=== PATIENT | female | born 1955 | race Caucasian/White ===

== ENCOUNTER 2017-07-30 19:22 | Inpatient (IN) | payer OTHER ==
[~2017-07-30] VITALS: Ht 170.2 cm; Wt 100.2 kg
[2017-07-30 19:26] VITALS: BP 167/86; PULSE 117; RESP 18; TEMP 98.5; O2SAT 95
[2017-07-30] MEDS ORDERED: [UNRECOGNIZED DRUG - CODE] PO (19:38)
[2017-07-30] MEDS ORDERED: ASPI-516 CHEW (19:38)
[2017-07-30] MEDS ORDERED: PANTOPRAZOLE INJ 80 MG in SODIUM CHLORIDE 0.9% INJ 35 ML IV ONE (19:52)
[2017-07-30] MEDS ORDERED: SODIUM CHLOR 0.9% 1000 ML INJ 1,000 ML IV SCH (19:52)
[2017-07-30] MEDS ORDERED: METOCLOPRAMIDE HCL 10 MG/2 ML VIAL IV PUSH ONE (20:00)
[2017-07-30] MEDS ORDERED: SODIUM CHLORIDE 0.9% FLUSH 10 ML FLUSH IVF PRN (20:00)
[2017-07-30] MEDS ORDERED: SODIUM CHLORID 0.9% 500 ML INJ 500 ML IV ONE (20:00)
--- NOTE | 2017-07-30 20:05 | PD ---
HPI Chief Complaint: GI Complaint Time Seen by Provider: 19:55 Travel History International Travel<30 days: No Contact w/Intl Traveler<30days: No Traveled to known affect area: No History of Present Illness HPI 62-year-old female presents to the emergency department by private transportation the care of her spouse for complaint of generalized weakness diaphoresis and black stools 3 today with associated nausea. Patient states that she has had black stools once in the past associated with diverticulitis and lower abdominal pain. Patient denies any lower quadrant or left lower quadrant abdominal pain. Patient does complain of some epigastric pain. Patient had been using nonsteroidal anti-inflammatory medications on an as- needed basis until about 2 weeks ago when she started noticing that when she would urinate she had blood in her urine. Patient has not noticed any blood in her urine recently. Patient's had nausea but no vomiting. Patient denies any known history of esophagitis gastritis or peptic ulcer disease. Patient takes no blood thinning agents. Patient takes no prescription medications. Patient has history of previous upper endoscopy that was reportedly normal 2 years ago when she was living in [place] as well as underwent colonoscopy at the same time and had 3 benign polyps excised. Patient's had no red blood per rectum. Patient has had no hematemesis or coffee-ground emesis. Patient denies any chest pain or shortness of breath. Patient's had no near syncope or syncope. Patient denies any cardiac history. Patient reports symptoms have been present 1 day. Patient has had poor oral intake. Patient is unable to identify exacerbating or alleviating factors. Past medical history is significant for tobaccoism diverticulitis unilateral oophorectomy and cholecystectomy. Patient denies history of alcohol use or pancreatitis. Patient rates overall discomfort 6/10 in intensity. [facility] Past Medical History Narrative Medical Upper endoscopy colonoscopy polypectomy cholecystectomy unilateral oophorectomy diverticulitis; tobaccoism; nursing notes reviewed Diminished Hearing: No Diverticulitis: Yes Tetanus Vaccination: Unknown Influenza Vaccination: No ?: Not Menopausal: Yes Past Surgical History Cholecystectomy: Yes Gynecologic Surgery: Yes (one ovary removed) Social History Alcohol Use: No Tobacco Use: Yes Substance Use: No Allergies-Medications (Allergen,Severity, Reaction): Coded Allergies: Iodinated Contrast- Oral and IV Dye (Verified Allergy, Severe, 07/30/17) cabbage (Verified Allergy, Severe, 07/30/17) latex (Verified Allergy, Severe, 07/30/17) peanut (Verified Allergy, Severe, 07/30/17) Reported Meds & Prescriptions Reported Meds & Active Scripts Active Reported Fish Oil Concentrate ([place]-3 Fatty Acids) 1,000 Mg Capsule 1,000 Mg PO DAILY Aspirin 81 Mg Chew 81 Mg CHEW DAILY Review of Systems Except as stated in HPI: all other systems reviewed are Neg General / Constitutional: No: Fever, Chills HENT: No: Congestion Cardiovascular: Positive: Diaphoresis, No: Chest Pain or Discomfort, Palpitations, Dyspnea on exertion Respiratory: No: Shortness of Breath Gastrointestinal: Positive: Nausea, Abdominal Pain (Epigastric), Loss of Appetite, No: Vomiting, Diarrhea, Hematemesis, Hematochezia (Black tarry stool) Genitourinary: Positive: Hematuria (Intermittent), No: Urgency, Frequency, Dysuria Musculoskeletal: No: Myalgias, Arthralgias Skin: No Rash Neurologic: Positive: Weakness, No: Dizziness, Syncope, Focal Abnormalities, Coordination Problem Psychiatric: No: Anxiety Hematologic/Lymphatic: No: Easy Bruising Physical Exam Narrative GENERAL: Well-developed well-nourished obese female no acute distress no respiratory distress; GCS 15 SKIN: Warm and dry. HEAD: Normocephalic. EYES: No scleral icterus. No injection or drainage. NECK: Supple, trachea midline. No JVD or lymphadenopathy. CARDIOVASCULAR: Regular rate and rhythm without murmurs, gallops, or rubs. RESPIRATORY: Breath sounds equal bilaterally. No accessory muscle use. GASTROINTESTINAL: Abdomen soft, mild epigastric tenderness to direct palpation without guarding or rebound otherwise abdomen is nontender, nondistended. Rectal exam: Normal sphincter tone black stool/melena on exam glove MUSCULOSKELETAL: No cyanosis, or edema. BACK: Nontender without obvious deformity. No CVA tenderness. Data Data Last Documented VS Vital Signs Date Time Temp Pulse Resp B/P (MAP) Pulse Ox O2 Delivery O2 Flow Rate FiO2 07/30/17 20:22 18 97 Room Air 07/30/17 19:26 98.5 117 167/86 (113) Orders Orders Comprehensive Metabolic Panel (07/30/17 19:52) Lipase (07/30/17 19:52) Prothrombin Time / Inr (Pt) (07/30/17 19:52) Act Partial Throm Time (Ptt) (07/30/17:52) Urinalysis - C+S If Indicated (07/30/17:) Type And Screen (07/30/17) Chest, Single Ap (07/30/17) Ecg Monitoring (07/30/17) Iv Access Insert/Monitor (07/30/17) Oximetry (07/30/17) Sodium Chlor 0.9% 1000 Ml Inj (Ns 1000 M (07/30/17:52) Sodium Chloride 0.9% Flush (Ns Flush) (07/30/17 20:00) Sodium Chloride 0.9... W/Pantoprazole In (07/30/17:) Sodium Chloride 0.9... W/Pantoprazole In (07/30/17) Sodium Chlorid 0.9% 500 Ml Inj (Ns 500 M (07/30/17 20:00) Metoclopramide Inj (Reglan Inj) (07/30/17 20:00) Complete Blood Count With Diff (07/30/17:) Labs Laboratory Tests Test 07/30/17 20:00 07/30/17 20:40 White Blood Count 9.9 TH/MM3 Red Blood Count 3.99 MIL/MM3 Hemoglobin 12.6 GM/DL Hematocrit 37.9 % Mean Corpuscular Volume 94.9 FL Mean Corpuscular Hemoglobin 31.5 PG Mean Corpuscular Hemoglobin Concent 33.2 % Red Cell Distribution Width 12.4 % Platelet Count 239 TH/MM3 Mean Platelet Volume 8.2 FL Neutrophils (%) (Auto) 64.0 % Lymphocytes (%) (Auto) 28.4 % Monocytes (%) (Auto) 4.7 % Eosinophils (%) (Auto) 1.1 % Basophils (%) (Auto) 1.8 % Neutrophils # (Auto) 6.3 TH/MM3 Lymphocytes # (Auto) 2.8 TH/MM3 Monocytes # (Auto) 0.5 TH/MM3 Eosinophils # (Auto) 0.1 TH/MM3 Basophils # (Auto) 0.2 TH/MM3 CBC Comment DIFF FINAL Differential Comment Prothrombin Time 10.3 SEC Prothromb Time International Ratio 1.0 RATIO Activated Partial Thromboplast Time 23.7 SEC Blood Urea Nitrogen 42 MG/DL Creatinine 0.93 MG/DL Random Glucose 161 MG/DL Total Protein 7.1 GM/DL Albumin 3.4 GM/DL Calcium Level 9.0 MG/DL Alkaline Phosphatase 80 U/L Aspartate Amino Transf (AST/SGOT) 11 U/L Alanine Aminotransferase (ALT/SGPT) 23 U/L Total Bilirubin 0.5 MG/DL Sodium Level 140 MEQ/L Potassium Level 4.0 MEQ/L Chloride Level 109 MEQ/L Carbon Dioxide Level 23.8 MEQ/L Anion Gap 7 MEQ/L Estimat Glomerular Filtration Rate 61 ML/MIN Lipase 204 U/L MDM Medical Decision Making Medical Screen Exam Complete: Yes Emergency Medical Condition: Yes Medical Record Reviewed: Yes Interpretation(s) Last Impressions Chest X-Ray 07/30/171951 Signed Impressions: CONCLUSION: No active disease. CBC & BMP Diagram 07/30/17 20:00 Total Protein 7.1, Albumin 3.4, Calcium Level 9.0, Alkaline Phosphatase 80, Aspartate Amino Transf (AST/SGOT) 11 L, Alanine Aminotransferase (ALT/SGPT) 23, Total Bilirubin 0.5 Vital Signs Date Time Temp Pulse Resp B/P (MAP) Pulse Ox O2 Delivery O2 Flow Rate FiO2 07/30/17 20:22 18 97 Room Air 07/30/17 19:26 98.5 117 18 167/86 (113) 95 Differential Diagnosis Upper GI bleed lower GI bleed anemia colitis diverticulitis peptic ulcer disease gastritis avm malignancy; also to consider esophageal varices Narrative Course Patient placed on quality assurance monitor with continuous pulse oximetry IV access obtained specimens collected and sent for resulting patient given Reglan for complaint of nausea and Protonix bolus with Protonix infusion for GI bleed patient noted to be mildly tachycardic in triage vital signs given 500 cc bolus of normal saline and maintenance fluid at 125 cc/h CBC is automated differential hemoglobin 12.6 stable; BUN/creatinine ratio greater than 30 (bun 42/cr 0.93); patient's case discussed with on-call [facility] physician Dr. Aguayo works up to his service request with admission orders and GI consult not needed in ED Critical Care Narrative Aggregate critical care time was 30 minutes. Time to perform other separately billable procedures was not included in the critical care time. My time did not include minutes spent treating any other patients simultaneously or on activities that did not directly contribute to the patient's treatment. The services I provided to this patient were to treat and/or prevent clinically significant deterioration that could result in: Hemorrhagic shock, I provided critical care services requiring my management, as noted below: Chart data review, documentation time, medication orders and management, vital sign assessments/reviewing monitor data, ordering and reviewing lab tests, ordering and interpreting/reviewing x-rays and diagnostic studies, care of the patient and discussion of the patient with the admitting physicians. HemaPrompt Point of Care Internal Pos. & Neg. Controls: Passed Fecal Specimen Occult Blood: Positive Physician Communication Physician Communication discussed with and accepted by Dr Aguayo to his service --requests GI consult to admit orders Diagnosis Primary Impression: GI bleed Qualified Codes: K92.1 - Melena Admitting Information Admitting Physician Requests: Doreen Montoya MD Jul 30, 2017 20:05
[2017-07-30 20:10] LABS: AUTOMATED NEUTROPHIL # 6.3 TH/MM3 (1.8-7.7); BASOPHIL # 0.2 TH/MM3 (0-0.2); BASOPHIL % 1.8 % (0.0-2.0); EOSINOPHIL # 0.1 TH/MM3 (0-0.4); EOSINOPHIL % 1.1 % (0.0-4.0); HEMATOCRIT 37.9 % (35.0-46.0); HEMOGLOBIN 12.6 GM/DL (11.6-15.3); LYMPH % 28.4 % (9.0-44.0); LYMPHOCYTE # 2.8 TH/MM3 (1.0-4.8); MEAN CELL VOLUME 94.9 FL (80.0-100.0); MEAN CORPUSCULAR HEMOGLOBIN 31.5 PG (27.0-34.0); MEAN CORPUSCULAR HGB CONC 33.2 % (32.0-36.0); MEAN PLATELET VOLUME 8.2 FL (7.0-11.0); MONO % 4.7 % (0.0-8.0); MONOCYTE # 0.5 TH/MM3 (0-0.9); PLATELET COUNT 239 TH/MM3 (150-450); RED BLOOD COUNT 3.99 MIL/MM3 (4.00-5.30); RED CELL DISTRIBUTION WIDTH 12.4 % (11.6-17.2); WHITE BLOOD COUNT 9.9 TH/MM3 (4.0-11.0)
[2017-07-30 20:22] VITALS: RESP 18; O2SAT 97
[2017-07-30 20:23] LABS: CHLORIDE 109 MEQ/L (98-107); SODIUM (NA) 140 MEQ/L (136-145)
[2017-07-30 20:27] LABS: ALBUMIN 3.4 GM/DL (3.4-5.0); BICARBONATE 23.8 MEQ/L (21.0-32.0); BLOOD UREA NITROGEN 42 MG/DL (7-18); GLUCOSE,RANDOM 161 MG/DL (74-106)
[2017-07-30 20:29] LABS: PROTHROMBIN TIME - PATIENT 10.3 SEC (9.8-11.6)
[2017-07-30 20:30] LABS: ALT (GPT) 23 U/L (10-53); AST (GOT) 11 U/L (15-37); CREATININE 0.93 MG/DL (0.50-1.00); GLOMERULAR FILTRATION RATE 61 ML/MIN (>89)
[2017-07-30 20:32] LABS: TOTAL BILIRUBIN ADULT 0.5 MG/DL (0.2-1.0); TOTAL PROTEIN 7.1 GM/DL (6.4-8.2)
[2017-07-30 20:33] LABS: ALKALINE PHOSPHATASE 80 U/L (45-117)
--- NOTE | 2017-07-30 20:38 | RADRPT ---
EXAM DATE: 07/30/2017 8:22 PM EDT AGE/SEX: 62 years / Female INDICATIONS: Tachycardia. CLINICAL DATA: This is the patient's initial encounter. Patient reports that signs and symptoms have been present for 1 day and indicates a pain score of 0/10. MEDICAL/SURGICAL HISTORY: None. None. COMPARISON: No prior exams available for comparison. FINDINGS: A single AP view of the chest demonstrates the lungs to be symmetrically aerated without evidence of mass, infiltrate or effusion. The cardiomediastinal contours are unremarkable. Osseous structures a re intact. CONCLUSION: No active disease. Electronically signed by: Sánchez Madrid MD 07/30/2017 8:36 PM EDT
[2017-07-30 20:49] LABS: BILIRUBIN, URINE NEG (NEG); BLOOD, URINE LARGE (NEG); GLUCOSE,URINE NEG (NEG); KETONE, URINE NEG (NEG); NITRITE,URINE NEG (NEG); URINE COLOR YELLOW (YELLW/STRAW); URINE LEUKOCYTE ESTERASE SMALL (NEG)
[2017-07-30 21:03] LABS: BACTERIA, URINE RARE /hpf
[2017-07-30] MEDS: PANTOPRAZOLE INJ 80 MG in SODIUM CHLORIDE 0.9% INJ 100 ML IV SCH (21:10)
[2017-07-30 21:15] VITALS: BP 135/64; PULSE 96; RESP 18; O2SAT 98
[2017-07-30 23:10] VITALS: BP 132/66; PULSE 92; RESP 18; O2SAT 98
[2017-07-30 23:52] VITALS: BP 113/48; PULSE 92; RESP 24; TEMP 98.3; O2SAT 98
[2017-07-31] VITALS (39 sets, daily range): BP systolic 86–161; BP diastolic 41–85; PULSE 62–106; RESP 4–28; TEMP 98–98.4; O2SAT 95–100
[2017-07-31 05:08] LABS: AUTOMATED NEUTROPHIL # 3.9 TH/MM3 (1.8-7.7); BASOPHIL # 0.2 TH/MM3 (0-0.2); BASOPHIL % 2.7 % (0.0-2.0); EOSINOPHIL # 0.1 TH/MM3 (0-0.4); EOSINOPHIL % 1.7 % (0.0-4.0); HEMATOCRIT 30.9 % (35.0-46.0); HEMOGLOBIN 10.3 GM/DL (11.6-15.3); LYMPH % 36.9 % (9.0-44.0); LYMPHOCYTE # 2.7 TH/MM3 (1.0-4.8); MEAN CELL VOLUME 94.1 FL (80.0-100.0); MEAN CORPUSCULAR HEMOGLOBIN 31.3 PG (27.0-34.0); MEAN CORPUSCULAR HGB CONC 33.2 % (32.0-36.0); MEAN PLATELET VOLUME 8.9 FL (7.0-11.0); MONO % 5.9 % (0.0-8.0); MONOCYTE # 0.4 TH/MM3 (0-0.9); NEUT % 52.8 % (16.0-70.0); PLATELET COUNT 197 TH/MM3 (150-450); RED BLOOD COUNT 3.28 MIL/MM3 (4.00-5.30); RED CELL DISTRIBUTION WIDTH 12.3 % (11.6-17.2); WHITE BLOOD COUNT 7.3 TH/MM3 (4.0-11.0)
[2017-07-31 05:23] LABS: BICARBONATE 23.3 MEQ/L (21.0-32.0)
[2017-07-31 05:30] LABS: CREATININE 0.77 MG/DL (0.50-1.00)
[2017-07-31] MEDS: PANTOPRAZOLE INJ 80 MG in SODIUM CHLORIDE 0.9% INJ 100 ML IV SCH ×2 (05:35→19:06)
[2017-07-31] MEDS ORDERED: LORazepam 2 MG/ML VIAL IV PUSH PRN (07:00)
--- NOTE | 2017-07-31 07:10 | HHI.HP ---
HPI Service [facility] Hospitalists Primary Care Physician Jose R Escalera DO Admission Diagnosis Upper GI bleed Chief Complaint: Dark tarry stool Travel History International Travel<30 Days: No Contact w/Intl Traveler <30 Da: No Traveled to Known Affected Are: No History of Present Illness 62-year-old female presents to the emergency department by private transportation under the care of her spouse for complaint of generalized weakness, diaphoresis and black stools 3 today with associated nausea. Patient states that she has had black stools once in the past associated with diverticulitis and lower abdominal pain a couple of years ago. Patient denies any lower quadrant or left lower quadrant abdominal pain. Patient does complain of some mild epigastric pain. Patient had been using nonsteroidal anti -inflammatory medications on an as-needed basis until about 2-3 weeks ago when she started noticing that when she would urinate she had blood in her urine. Patient has not noticed any blood in her urine recently. She denies any dysuria , frequency, urgency or other urinary complaints at this point. No fevers or chills. Patient's had nausea but no vomiting. Patient denies any known history of esophagitis gastritis or peptic ulcer disease. Patient does take a baby aspirin and fish old each day. Patient takes no prescription medications. Patient has history of previous upper endoscopy that was reportedly normal approximately 2 years ago when she was living in [place] as well as underwent colonoscopy at the same time and had 3 benign polyps excised per her report. Patient's had no red blood per rectum. Patient has had no hematemesis or coffee -ground emesis. Patient denies any chest pain or shortness of breath. Patient' s had no near syncope or syncope, but has a little lightheadedness when standing from seated position. Patient denies any cardiac history. Patient reports symptoms have been present 1 day. Patient has had poor oral intake over the last day. Patient denies history of alcohol use or pancreatitis. Her main complaint on my exam this morning is that she is hungry and does not want to stay in the hospital very long. Review of Systems Constitutional: COMPLAINS OF: Diaphoretic episodes, Fatigue, Dizziness, Change in appetite Eyes: DENIES: Blurred vision, Diplopia, Eye inflammation, Eye pain, Vision loss , Photosensitivity, Double Vision Ears, nose, mouth, throat: DENIES: Tinnitus, Hearing loss, Vertigo, Nasal discharge, Oral lesions, Throat pain, Hoarseness, Ear Pain, Running Nose, Epistaxis, Sinus Pain, Toothache, Odynophagia Respiratory: DENIES: Apneas, Cough, Snoring, Wheezing, Hemoptysis, Sputum production, Shortness of breath Cardiovascular: DENIES: Chest pain, Palpitations, Syncope, Dyspnea on Exertion , PND, Lower Extremity Edema, Orthopnea, Claudication Gastrointestinal: COMPLAINS OF: Abdominal pain, Black stools, GERD, Nausea, DENIES: Bloody stools, BRB per rectum, Constipation, Diarrhea, Reflux, Vomiting , Difficulty Swallowing, Anorexia, See HPI Genitourinary: COMPLAINS OF: Hematuria, DENIES: Abnormal vaginal bleeding, Dysmenorrhea, Dyspareunia, Sexual dysfunction, Urinary frequency, Urinary incontinence, Urgency, Dysuria, Nocturia, Vaginal discharge Musculoskeletal: DENIES: Joint pain, Muscle aches, Stiffness, Joint Swelling, Back pain, Neck pain Integumentary: DENIES: Abnormal pigmentation, Pruritus, Rash, Nail changes, Breast masses, Breast skin changes, Nipple discharge Hematologic/lymphatic: DENIES: Bruising, Lymphadenopathy Immunologic/allergic: DENIES: Eczema, Urticaria Neurologic: DENIES: Abnormal gait, Headache, Localized weakness, Paresthesias, Seizures, Speech Problems, Tremor, Poor Balance Psychiatric: COMPLAINS OF: Anxiety Past Family Social History Past Medical History Obesity Tobacco use History of diverticulitis Past Surgical History Cholecystectomy Unilateral oophorectomy Reported Medications Aspirin 81 mg a day Fish oil 1200 mg twice a day Allergies: Coded Allergies: Iodinated Contrast- Oral and IV Dye (Verified Allergy, Severe, 07/30/17) cabbage (Verified Allergy, Severe, 07/30/17) latex (Verified Allergy, Severe, 07/30/17) peanut (Verified Allergy, Severe, 07/30/17) Family History No strong family history of GI bleeding or GI cancers Social History Smokes approximately 20 cigarettes a day and has done that for approximately 45 years Denies alcohol or illicit drug use and lives with her Patient reports she was born in [place], but grew up in [place] and later moved to [place]. She has been in the area locally for 2 years. 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 Physical Exam Vital Signs Vital Signs Date Time Temp Pulse Resp B/P (MAP) Pulse Ox O2 Delivery O2 Flow Rate FiO2 07/31/17 04:28 80 19 90/58 (69) 95 07/31/17 03:18 82 28 119/51 (73) 98 07/31/17 02:00 84 14 96/44 (61) 96 07/31/17 01:07 82 16 100/41 (60) 95 07/30/17 23:52 98.3 92 24 113/48 (69) 98 07/30/17 23:48 94 18 97 07/30/17 23:10 92 18 132/66 (88) 98 Room Air 07/30/17 21:15 96 18 135/64 (87) 98 Room Air 07/30/17 20:22 18 97 Room Air 07/30/17 19:26 98.5 117 18 167/86 (113) 95 Physical Exam GENERAL: Sleeping, arouses to voice. Well-nourished, slightly obese, well- developed patient, in no apparent distress although she does become somewhat anxious when I tell her she may be here in the hospital another day. SKIN: No rashes, ecchymoses or lesions. Cool and dry. HEAD: Atraumatic. Normocephalic. No temporal or scalp tenderness. EYES: Pupils equal round and reactive. Extraocular motions intact. No scleral icterus. No injection or drainage. ENT: Nose without bleeding, purulent drainage or septal hematoma. Airway patent. NECK: Trachea midline. No JVD or lymphadenopathy. Supple, nontender, no meningeal signs. CARDIOVASCULAR: Regular rate and rhythm without murmurs, gallops, or rubs. RESPIRATORY: Clear to auscultation. Breath sounds equal bilaterally. No wheezes , rales, or rhonchi. GASTROINTESTINAL: Abdomen soft, nondistended. Mild tenderness palpation in epigastrium. No hepato-splenomegaly, or palpable masses. No guarding or rebound. MUSCULOSKELETAL: Extremities without clubbing, cyanosis, or edema. No joint tenderness, effusion, or edema noted. No calf tenderness. Moves all extremities well. NEUROLOGICAL: Awake and alert. Cranial nerves II through XII intact. Motor and sensory grossly within normal limits. Five out of 5 muscle strength in all muscle groups. Normal speech. Laboratory Laboratory Tests Test 07/30/17 20:00 07/30/17 20:40 07/31/17 04:15 White Blood Count 9.9 7.3 Red Blood Count 3.99 3.28 Hemoglobin 12.6 10.3 Hematocrit 37.9 30.9 Mean Corpuscular Volume 94.9 94.1 Mean Corpuscular Hemoglobin 31.5 31.3 Mean Corpuscular Hemoglobin Concent 33.2 33.2 Red Cell Distribution Width 12.4 12.3 Platelet Count 239 197 Mean Platelet Volume 8.2 8.9 Neutrophils (%) (Auto) 64.0 52.8 Lymphocytes (%) (Auto) 28.4 36.9 Monocytes (%) (Auto) 4.7 5.9 Eosinophils (%) (Auto) 1.1 1.7 Basophils (%) (Auto) 1.8 2.7 Neutrophils # (Auto) 6.3 3.9 Lymphocytes # (Auto) 2.8 2.7 Monocytes # (Auto) 0.5 0.4 Eosinophils # (Auto) 0.1 0.1 Basophils # (Auto) 0.2 0.2 CBC Comment DIFF FINAL DIFF FINAL Differential Comment Prothrombin Time 10.3 Prothromb Time International Ratio 1.0 Activated Partial Thromboplast Time 23.7 Blood Urea Nitrogen 42 34 Creatinine 0.93 0.77 Random Glucose 161 109 Total Protein 7.1 Albumin 3.4 Calcium Level 9.0 8.0 Alkaline Phosphatase 80 Aspartate Amino Transf (AST/SGOT) 11 Alanine Aminotransferase (ALT/SGPT) 23 Total Bilirubin 0.5 Sodium Level 140 144 Potassium Level 4.0 3.8 Chloride Level 109 114 Carbon Dioxide Level 23.8 23.3 Anion Gap 7 7 Estimat Glomerular Filtration Rate 61 76 Lipase 204 Urine Color YELLOW Urine Turbidity SL CLOUDY Urine pH 5.0 Urine Specific [place] 1.020 Urine Protein NEG Urine Glucose (UA) NEG Urine Ketones NEG Urine Occult Blood LARGE Urine Nitrite NEG Urine Bilirubin NEG Urine Urobilinogen 0.2 Urine Leukocyte Esterase SMALL Urine RBC 50-99 Urine WBC 6-8 Urine Squamous Epithelial Cells 6-8 Urine Bacteria RARE Microscopic Urinalysis Comment CULT NOT INDICATED Result Diagram: 07/31/1741407/31/17414 Imaging Last 72 hours Impressions Chest X-Ray 07/30/171951 Signed Impressions: CONCLUSION: No active disease. Caprini VTE Risk Assessment Caprini VTE Risk Assessment: Mod/High Risk (score >= 2) Caprini Risk Assessment Model Point Value = 1 Point Value = 2 Point Value = 3 Point Value = 5 Age 41-60 Minor surgery BMI > 25 kg/m2 Swollen legs Varicose veins or History of unexplained or recurrent spontaneous Oral contraceptives or hormone replacement Sepsis (< 1 month) Serious lung disease, including pneumonia (< 1 month) Abnormal pulmonary function Acute myocardial infarction Congestive heart failure (< 1 month) History of inflammatory bowel disease Medical patient at bed rest Age 61-74 Arthroscopic surgery Major open surgery (> 45 min) Laparoscopic surgery (> 45 min) Malignancy Confined to bed (> 72 hours) Immobilizing plaster cast Central venous access Age >= 75 History of VTE Family history of VTE Factor V Leiden Prothrombin [id number] Lupus anticoagulant Anticardiolipin antibodies Elevated serum homocysteine Heparin-induced thrombocytopenia Other congenital or acquired thrombophilia Stroke (< 1 month) Elective arthroplasty Hip, pelvis, or leg fracture Acute spinal cord injury (< 1 month) Prophylaxis Regimen Total Risk Factor Score Risk Level Prophylaxis Regimen 0-1 Low Early ambulation 2 Moderate Order ONE of the following: *Sequential Compression Device (SCD) *Heparin 5000 units SQ BID 3-4 Higher Order ONE of the following medications: *Heparin 5000 units SQ TID *Enoxaparin/Lovenox 40 mg SQ daily (WT < 150 kg, CrCl > 30 mL/min) *Enoxaparin/Lovenox 30 mg SQ daily (WT < 150 kg, CrCl > 10-29 mL/min) *Enoxaparin/Lovenox 30 mg SQ BID (WT < 150 kg, CrCl > 30 mL/min) AND/OR *Sequential Compression Device (SCD) 5 or more Highest Order ONE of the following medications: *Heparin 5000 units SQ TID (Preferred with Epidurals) *Enoxaparin/Lovenox 40 mg SQ daily (WT < 150 kg, CrCl > 30 mL/min) *Enoxaparin/Lovenox 30 mg SQ daily (WT < 150 kg, CrCl > 10-29 mL/min) *Enoxaparin/Lovenox 30 mg SQ BID (WT < 150 kg, CrCl > 30 mL/min) AND *Sequential Compression Device (SCD) Assessment and Plan Problem List: (1) GI bleed ICD Codes: K92.2 - Gastrointestinal hemorrhage, unspecified Status: Acute Plan: Vital signs relatively stable. Blood pressure is borderline low but she is relatively asymptomatic. Heart rate is normal. We will continue IV fluids for another liter. Hemoglobin has dropped a little bit overnight but this may be somewhat delusional. Continue to monitor hemoglobin. Have GI see the patient scoping. Avoid nonsteroidals. We will use SCDs and TEDs for clot prevention. (2) Hematuria ICD Codes: R31.9 - Hematuria, unspecified Status: Acute Plan: Questionable etiology. Patient has no symptoms of cystitis or other urinary infection. We will check renal ultrasound to include bladder as she is allergic to IV and oral contrast agents. Her reaction to the contrast are high so we may have to premedicate in the future to get a CT scan if needed. She is opposed to staying in the hospital for any additional time for this workup. Hematuria does need to be worked up as an outpatient I have discussed with her especially given her long history of smoking. She is agreeable to such workup but does not want to remain in the hospital for such. She is not having gross hematuria any longer. (3) Nicotine dependence with current use ICD Codes: F17.200 - Nicotine dependence, unspecified, uncomplicated Status: Chronic Plan: Provide NicoDerm. Encouraged cessation. Code Status full Discussed Condition With Patient, ER provider and patient's nurse. Problem Qualifiers (1) GI bleed: Qualified Codes: K92.1 - Rubio Comer MD PhD Jul 31, 2017 07:10
[2017-07-31] MEDS: NICOTINE 14 MG/24 HR PATCH T-DERMAL SCH (07:58)
[2017-07-31] MEDS: REMOVE OLD PATCH T-DERMAL SCH (07:59)
[2017-07-31] MEDS ORDERED: PANTOPRAZOLE SOD 40 MG DELAYED RELEASE TAB PO SCH (09:00)
--- NOTE | 2017-07-31 10:06 | RADRPT ---
EXAM DATE: 07/31/2017 10:01 AM EDT AGE/SEX: 62 years / Female INDICATIONS: Hematuria. CLINICAL DATA: This is the patient's initial encounter. Patient reports that signs and symptoms have been present for 1 day and indicates a pain score of 0/10. MEDICAL/SURGICAL HISTORY: Hypercholesterolemia. Diverticulitis. Arthritis. Hematuria. Janet cystectomy. Oophorectomy. COMPARISON: No prior exams available for comparison. MEASUREMENTS: Right Kidney:__10.3 x 5.6 x 4.1 cm cm Left Kidney:__10.4 x 5.0 x 5.0 cm cm FINDINGS: Right Kidney: Negative for mass or stone. Left Kidney: 6 mm stone without hydronephrosis. Bladder: Decompressed CONCLUSION: 1. 6 mm left renal stone without hydronephrosis. Electronically signed by: Gonazlo Stallings MD 07/31/2017 10:05 AM EDT
[2017-07-31] MEDS: ACETAMINOPHEN 325 MG TAB PO PRN (10:15)
--- NOTE | 2017-07-31 11:31 | MB ---
cc: Daniel Lyon MD DATE: 07/31/2017 DATE OF SERVICE: 07/31/2017. DATE OF : 1955 REFERRING PHYSICIAN: Dr. Aguayo. Thank you for the consult. REASON FOR CONSULTATION: GI bleed and melena. HISTORY OF PRESENT ILLNESS: A 62-year-old lady who has been doing okay. She came with generalized weakness, diaphoresis, black tarry stool for the last few days, associated with nausea and midepigastric discomfort. The patient stated she does not have rectal bleeding. No bright red blood. No vomiting or hematemesis. She said that she had this on and off for the last 3 weeks. Apparently, she had a colonoscopy done 3 years ago, where there were 3 polyps and she denies any other GI symptoms. PAST MEDICAL HISTORY: Significant for diverticulitis, cholecystectomy, unilateral oophorectomy ALLERGIES: IODINE. LATEX. PEANUTS AND CABBAGE. FAMILY HISTORY: Noncontributory SOCIAL HISTORY: Positive for tobacco. No drugs or alcohol. PHYSICAL EXAMINATION: GENERAL: Alert, oriented, in no acute distress. VITAL SIGNS: Vital signs are stable. HEENT: Pupils are reactive to light. NECK: Supple. CHEST: Clear to auscultation and percussion. CARDIAC: Regular rate and rhythm. No murmur or gallops. ABDOMEN: Soft. Moderate obesity. Positive bowel sounds. No hepatosplenomegaly. EXTREMITIES: No edema, clubbing or cyanosis: NEUROLOGIC: Intact. PSYCHOLOGIC: Appropriate. LABORATORY DATA: White count 7.3, hemoglobin 10.3, down from 12.6, platelet 197. INR 1.0. BUN 34, creatinine 0.77 Liver function tests normal with total bilirubin 0.5, AST 11, ALT 23. Lipase 204. ASSESSMENT AND PLAN: 1. A 62-year-old lady with melena, black stool, anemia, most likely upper gastrointestinal bleed. I recommend doing upper endoscopy. We will plan on doing this today, I explained to the patient the procedure and complications. She is agreeable to have it done. 2. History of colon polyps. The patient need for colonoscopy depends on the last one; if she will need a colonoscopy based on the recommendation from that. 2. If the upper endoscopy is negative, we need to consider colonoscopy and possible capsule endoscopy. 3. We will monitor hemoglobin and hematocrit. 4. Further plan depends on the findings. MD BARON Mclain/IRWIN , 11:11 AM , 11:30 AM
--- NOTE | 2017-07-31 12:38 | PD.PROCEDR ---
GI Procedure PROCEDURE PERFORMED EGD, biopsy, bleeding control from an ulcer in the duodenum by injection of epinephrine, cauterization of the ulcer and placing 2 clips INDICATION FOR PROCEDURE GI bleed, melena PROCEDURE: The procedure, risks and benefits were discussed with Ms. Grey and informed consent was obtained. Anesthesia sedated her with Diprivan. She was placed in the left lateral decubitus position. EGD: The Pentax videoscope was introduced through the oropharynx and advanced to the second portion of the duodenum under direct visualization. There was an ulcer in the duodenum bulb which was actively bleeding this was injected with 4 cc of epinephrine, cauterized with gold probe, 2 clips were placed with complete control of the bleeding retroflexion was performed in the stomach. Biopsy from the antrum The stomach was significant for blood patient was retching so she was intubated during the procedure ESTIMATED BLOOD LOSS: 30 cc SPECIMENS REMOVED: Antrum COMPLICATIONS: Patient was intubated during the procedure we will evaluate for possible aspiration IMPRESSION: Duodenal ulcer actively bleeding PLAN: Keep patient intubated for now Make sure patient did not have aspiration we might need to do a chest x-ray No NSAIDs Protonix 40 mg daily Follow-up biopsy Daniel Lyon MD Jul 31, 2017 12:38
[2017-07-31] MEDS ORDERED: PROPOFOL 500 MG/50 ML INJ 50 ML ONE (12:53)
[2017-07-31] MEDS ORDERED: MIDAZOLAM HCL 2 MG/2 ML VIAL ONE (13:08)
[2017-07-31] MEDS ORDERED: LACTULOSE SYRUP 20 GM/30 ML CUP PO PRN (13:15)
[2017-07-31] MEDS ORDERED: ACETAMINOPHEN 325 MG TAB PO PRN (13:15)
[2017-07-31] MEDS ORDERED: ONDANSETRON HCL 4 MG/2 ML VIAL IV PUSH PRN (13:15)
[2017-07-31] MEDS ORDERED: RESP: ALBUTEROL 2.5 MG/IPRATROPIUM 0.5 MG NEB (PRN) INH (13:15)
[2017-07-31] MEDS ORDERED: BISACODYL 10 MG SUPP RECTAL PRN (13:15)
[2017-07-31] MEDS ORDERED: CHLORHEXIDINE GLUCONATE 2 % 1 PACK (2 CLOTHS) TOP PRN (13:15)
[2017-07-31] MEDS ORDERED: SENNOSIDES 8.6 MG TAB PO PRN (13:15)
[2017-07-31] MEDS ORDERED: MAGNESIUM HYDROXIDE SUSP 30 ML CUP PO PRN (13:15)
[2017-07-31] MEDS ORDERED: NURSING INFORMATION XX SCH (13:15)
[2017-07-31] MEDS ORDERED: SODIUM CHLORIDE 0.9% FLUSH 10 ML FLUSH IV FLUSH PRN (13:15)
[2017-07-31] MEDS: SODIUM CHLOR 0.9% 1000 ML INJ 1,000 ML IV SCH ×2 (13:51→20:02)
[2017-07-31] MEDS: fentaNYL DRIP 250 ML IV PRN (13:52)
--- NOTE | 2017-07-31 13:59 | RADRPT ---
EXAM DATE: 07/31/2017 1:55 PM EDT AGE/SEX: 62 years / Female INDICATIONS: Post Intubation CLINICAL DATA: This is the patient's subsequent encounter. Patient reports that signs and symptoms h ave been present for 2 days and indicates a pain score of Nonresponsive. MEDICAL/SURGICAL HISTORY: None. None. COMPARISON: HPO, CHEST SINGLE AP, 07/30/2017. . FINDINGS: A single AP view of the chest demonstrates an endotracheal tube with the tip partially obscured. It i s felt to be 3 cm proximal to connie. Nasogastric tube coils in the gastric fundus. Heart is normal i n size. Lungs are clear. No infiltrate or effusion. Multiple EKG leads overlie the chest. CONCLUSION: Endotracheal tube and nasogastric tube is detailed above. Clear lungs. Electronically signed by: Rufus Coffman MD 07/31/2017 1:58 PM EDT
[2017-07-31] MEDS: PROPOFOL 1000 MG/100 ML INJ 100 ML IV PRN ×2 (14:07→20:04)
[2017-07-31] MEDS ORDERED: EPINEPHrine HCL (1:10,000) 1 MG/10 ML SYRINGE OTHER ONE (14:18)
[2017-07-31] MEDS: RESP: ALBUTEROL 2.5 MG/IPRATROPIUM 0.5 MG NEB (SCH) INH ×3 (15:12→20:56)
--- NOTE | 2017-07-31 16:26 | PD.CONS ---
[facility] Service Critical Care Medicine Consult Requested By Reason for Consult Ventilator management Primary Care Physician Jose R Escalera DO History of Present Illness This is a 62-year-old female who is seen today in consultation for critical care management. Patient presented to the ICU intubated and sedated. The patient originally came to the hospital because of generalized weakness, diaphoresis and black stools for 3 days. Patient had workup done emergency department and recommended hospitalization and the patient was seen by Dr. Aguayo for [facility]. Staff Educator was consulted for evaluation. Patient did have hemoglobin monitored during her stay in the hospital found to have a 12.6 upon initial evaluation and it decreased to 10.3. Patient was taken for EGD today. The patient was anesthetized with Diprivan and placed in the left lateral decubitus position. Direct visualization was performed of a actively bleeding ulcer in the duodenal bulb which was injected with 4 cc epinephrine, cauterized with gold probe, 2 clips were placed with complete can roll of the bleeding. Patient was having retching and was at risk for aspiration. The patient was urgently intubated for airway protection. The patient was then transferred to ICU for continued care of the patient while she is intubated on ventilator. Upon evaluating the patient she is intubated sedated, unable to give any information. Patient with some mild agitation while intubated. This was controlled with increased sedation. Patient resting comfortably this time. Ventilating well. Review of Systems ROS Limitations: Intubated Past Family Social History Allergies: Coded Allergies: Iodinated Contrast- Oral and IV Dye (Verified Allergy, Severe, 07/30/17) cabbage (Verified Allergy, Severe, 07/30/17) latex (Verified Allergy, Severe, 07/30/17) peanut (Verified Allergy, Severe, 07/30/17) Past Medical History Unable to obtain information from the patient, information taken from medical records Obesity Tobacco use History diverticulitis Past Surgical History Unable to obtain information from the patient, information taken from medical records Upper endoscopy Cholecystectomy Unilateral nephrectomy Reported Medications Reported Meds & Active Scripts Active Reported Fish Oil Concentrate (Richards-3 Fatty Acids) 1,000 Mg Capsule 1,000 Mg PO DAILY Aspirin 81 Mg Chew 81 Mg CHEW DAILY Family History Unable to obtain information from the patient, information taken from medical records Records do not indicate any significant family history. Specifically no family history of GI bleeding or GI cancers Social History Unable to obtain information from the patient, information taken from medical records Medical records indicate the patient smokes 20 cigarettes a day and has done so for 45 years. No indication of any alcohol. Patient does live with her . Physical Exam Vital Signs Vital Signs Date Time Temp Pulse Resp B/P (MAP) Pulse Ox O2 Delivery O2 Flow Rate FiO2 07/31/17 15:00 62 07/31/17 14:00 98.1 70 17 107/55 (72) 98 07/31/17 13:46 99 40 07/31/17 13:46 74 18 119/63 (81) 98 07/31/17 13:29 82 23 124/62 (82) 99 07/31/17 13:16 82 22 141/60 (87) 98 07/31/17 13:11 82 24 125/71 (89) 98 07/31/17 13:01 92 26 142/62 (88) 98 07/31/17 13:00 97 50 07/31/17 12:55 90 22 161/85 (110) 99 07/31/17 12:50 149/61 (90) 07/31/17 12:11 07/31/17 10:00 80 23 116/62 (80) 98 07/31/17 09:00 82 24 102/57 (72) 99 07/31/17 08:00 98.0 80 18 106/52 (70) 95 07/31/17 04:28 80 19 90/58 (69) 95 07/31/17 03:18 82 28 119/51 (73) 98 07/31/17 02:00 84 14 96/44 (61) 96 07/31/17 01:07 82 16 100/41 (60) 95 07/30/17 23:52 98.3 92 24 113/48 (69) 98 07/30/17 23:48 94 18 97 07/30/17 23:10 92 18 132/66 (88) 98 Room Air 07/30/17 21:15 96 18 135/64 (87) 98 Room Air 07/30/17 20:22 18 97 Room Air 07/30/17 19:26 98.5 117 18 167/86 (113) 95 Physical Exam GENERAL: Well-developed, mildly obese with BMI 34.4, patient is intubated and sedated HEENT: Head is normocephalic without any lesions or masses noted. Facial features are symmetric. Eyes: Pupils equal round reactive to light. Extraocular muscles are intact. Conjunctivae were clear. Oropharyngeal: Patient is orally intubated, there appears to be some bright red blood noted in the ventilator tubing, suctioning was performed without any further signs of blood NECK: Supple without any masses. Trachea midline no deviation. No JVD, no bruits are appreciated CARDIAC: Regular rhythm, regular rate. S1/S2 are heard. No murmurs gallops or rubs. LUNGS: Clear to auscultation bilaterally. No wheeze, rhonchi or rales. No use of accessory muscles on inspiration or expiration. ABDOMEN: Soft, nontender. Nondistended. Bowel sounds heard in all 4 quadrants. No organomegaly or masses. Negative rebound, negative guarding EXTREMITIES: No edema, pulses are equal bilaterally. No cyanosis or clubbing NEUROLOGY: Cranial nerves II through XII grossly intact. Deep tendon reflexes are 2+ in upper and lower extremities bilaterally. Patient responds to painful stimuli in all extremities Laboratory Laboratory Tests Test 07/30/17 20:00 07/30/17 20:40 07/31/17 04:15 07/31/17 13:15 White Blood Count 9.9 7.3 Red Blood Count 3.99 3.28 Hemoglobin 12.6 10.3 Hematocrit 37.9 30.9 Mean Corpuscular Volume 94.9 94.1 Mean Corpuscular Hemoglobin 31.5 31.3 Mean Corpuscular Hemoglobin Concent 33.2 33.2 Red Cell Distribution Width 12.4 12.3 Platelet Count 239 197 Mean Platelet Volume 8.2 8.9 Neutrophils (%) (Auto) 64.0 52.8 Lymphocytes (%) (Auto) 28.4 36.9 Monocytes (%) (Auto) 4.7 5.9 Eosinophils (%) (Auto) 1.1 1.7 Basophils (%) (Auto) 1.8 2.7 Neutrophils # (Auto) 6.3 3.9 Lymphocytes # (Auto) 2.8 2.7 Monocytes # (Auto) 0.5 0.4 Eosinophils # (Auto) 0.1 0.1 Basophils # (Auto) 0.2 0.2 CBC Comment DIFF FINAL DIFF FINAL Differential Comment Prothrombin Time 10.3 Prothromb Time International Ratio 1.0 Activated Partial Thromboplast Time 23.7 Blood Urea Nitrogen 42 34 Creatinine 0.93 0.77 Random Glucose 161 109 Total Protein 7.1 Albumin 3.4 Calcium Level 9.0 8.0 Alkaline Phosphatase 80 Aspartate Amino Transf (AST/SGOT) 11 Alanine Aminotransferase (ALT/SGPT) 23 Total Bilirubin 0.5 Sodium Level 140 144 Potassium Level 4.0 3.8 Chloride Level 109 114 Carbon Dioxide Level 23.8 23.3 Anion Gap 7 7 Estimat Glomerular Filtration Rate 61 76 Lipase 204 Urine Color YELLOW Urine Turbidity SL CLOUDY Urine pH 5.0 Urine Specific Adel 1.020 Urine Protein NEG Urine Glucose (UA) NEG Urine Ketones NEG Urine Occult Blood LARGE Urine Nitrite NEG Urine Bilirubin NEG Urine Urobilinogen 0.2 Urine Leukocyte Esterase SMALL Urine RBC 50-99 Urine WBC 6-8 Urine Squamous Epithelial Cells 6-8 Urine Bacteria RARE Microscopic Urinalysis Comment CULT NOT INDICATED Test 07/31/17 14:05 07/31/17 14:59 Blood Gas Puncture Site LT RADIAL Blood Gas Patient Temperature 37.0 Blood Gas HCO3 22 Blood Gas Base Excess -2.8 Blood Gas Oxygen Saturation 95 Arterial Blood pH 7.35 Arterial Blood Partial Pressure CO2 40 Arterial Blood Partial Pressure O2 93 Arterial Blood Oxygen Content 12.7 Arterial Blood Carboxyhemoglobin 2.0 Arterial Blood Methemoglobin 1.2 Blood Gas Hemoglobin 9.5 Oxygen Delivery Device VENT Blood Gas Ventilator Setting AC18/VT500/PEEP 5 Blood Gas Inspired Oxygen 40 Hematocrit 27.6 Result Diagram: 07/31/17 1459 07/31/17 0415 Imaging Last Impressions Renal Ultrasound 07/31/17 0000 Signed Impressions: CONCLUSION: 1. 6 mm left renal stone without hydronephrosis. Chest X-Ray 07/31/17 0000 Signed Impressions: CONCLUSION: Endotracheal tube and nasogastric tube is detailed above. Clear lungs. Assessment and Plan Problem List: (1) Acute respiratory failure ICD Code: J96.00 - Acute respiratory failure, unspecified whether with hypoxia or hypercapnia (2) Upper GI bleed ICD Code: K92.2 - Gastrointestinal hemorrhage, unspecified Assessment and Plan NEUROLOGY Patient sedated with propofol and fentanyl Continue to titrate sedation to maintain RASS -2 Daily sedation vacation Ativan as needed for anxiety PULMONARY Acute respiratory failure Airway protection from aspiration Chronic smoker Patient intubated 07/31/17 by anesthesiology with 7.0 cuffed ET tube X-ray indicated ET tube felt to be 3 cm proximal to connie. No infiltrate or effusion Patient originally on PRVC/AC ventilation 16/500/1 0.0/5/50%, changed to assist- control ventilation 18/500/5/50% Continue to wean FiO2 down to 35% to maintain O2 sats greater than 92% Ventilator bundle has been initiated Daily CPAP trial, if the patient continues to do well anticipate CPAP tomorrow with extubation Duo nebs every 6 hours and every 4 hours as needed for wheezing Patient does have nicotine patch CARDIOLOGY Blood pressure and heart rate stable at this time Continue monitor map to maintain greater than 65 GASTROENTEROLOGY Upper GI bleed Actively bleeding duodenal ulcer Protonix IV GI following the patient Status post EGD with injection of epinephrine, cauterized with gold probe, 2 clips were placed with complete control of bleeding OG tube in place for medication administration, We will need to start tube feeding tomorrow if patient is unsuccessful at extubation Bowel regimen RENAL Azotemia Hematuria Renal ultrasound indicated 6 mm left renal stone without hydronephrosis Continue monitor renal function Patient continued on normal saline at 100ml/hr Urinary catheter was placed to monitor input and output Continue monitor renal function INFECTIOUS DISEASE No signs or source of infection at this time Monitor for fever, bolivar culture if needed ENDOCRINOLOGY Continue to monitor glucose, start Accuchecks Q 4 hours with low dose sliding scale insulin HEMATOLOGY Continue monitor hemoglobin and hematocrit, transfuse if hemoglobin below 8.0 PROPHYLAXIS GI protection with Protonix DVT prevention with sequential compression devices, avoid chemical prophylaxis secondary to GI bleed LINES Peripheral IV CODE STATUS Full code Critical care time 60 minutes excluding procedures Code Status Full code Discussed Condition With I have evaluated the patient and agree the above findings. I discussed and plan of treatment with the patient's at bedside. my billing statement This patient remains critically ill with one or more organ systems which are or may become a threat to life. I have spent in excess of 60 minutes discontinuously in the care and management of this patient. This time is exclusive of procedures, and includes, but is not limited to, evaluation of the patient, review of the medical record, discussions with family, consultants, nursing staff, or respiratory therapy, and documentation in the medical record. Que Moore Jul 31, 2017 16:26 Zuleima Reece MD Jul 31, 2017 18:21
[2017-07-31] MEDS: ARTIFICIAL TEARS OPTH SOLN 15 ML BTL EACH EYE SCH (17:52)
[2017-07-31] MEDS ORDERED: GLUCAGON 1 MG/ML VIAL OTHER PRN (18:00)
[2017-07-31] MEDS ORDERED: DEXTROSE 50% IN WATER 50 ML VIAL(D50) IV PUSH PRN (18:00)
[2017-07-31] MEDS: INSULIN ASPART SUPPLEMENTAL SCALE SQ SCH (20:00)
[2017-07-31] MEDS: DOCUSATE SODIUM 50 MG/SENNA 8.6 MG TAB PO SCH (20:02)
[2017-07-31] MEDS: CHLORHEXIDINE 0.12% (ORAL KIT) 15 ML CUP MT SCH (20:06)
[2017-07-31] MEDS: SODIUM CHLORIDE 0.9% FLUSH 10 ML FLUSH IV FLUSH SCH (21:00)
[2017-07-31] MEDS ORDERED: INSULIN ASPART SUPPLEMENTAL SCALE SQ SCH (21:00)
[2017-08-01] VITALS (46 sets, daily range): BP systolic 91–161; BP diastolic 43–75; PULSE 66–108; RESP 6–29; TEMP 98.1–99.2; O2SAT 88–100
[2017-08-01] MEDS: CHLORHEXIDINE GLUCONATE 2 % 1 PACK (2 CLOTHS) TOP SCH (01:24)
[2017-08-01] MEDS: PANTOPRAZOLE INJ 80 MG in SODIUM CHLORIDE 0.9% INJ 100 ML IV SCH ×2 (02:58→14:07)
[2017-08-01] MEDS: fentaNYL DRIP 250 ML IV PRN (03:06)
[2017-08-01] MEDS: PROPOFOL 1000 MG/100 ML INJ 100 ML IV PRN (03:07)
[2017-08-01] MEDS: CHLORHEXIDINE 0.12% (ORAL KIT) 15 ML CUP MT SCH ×2 (03:09→20:00)
[2017-08-01] MEDS: INSULIN ASPART SUPPLEMENTAL SCALE SQ SCH ×2 (04:00)
[2017-08-01] MEDS: SODIUM CHLOR 0.9% 1000 ML INJ 1,000 ML IV SCH ×2 (05:23→20:15)
[2017-08-01 05:24] LABS: AUTOMATED NEUTROPHIL # 6.9 TH/MM3 (1.8-7.7); BASOPHIL # 0.1 TH/MM3 (0-0.2); BASOPHIL % 0.8 % (0.0-2.0); EOSINOPHIL # 0.1 TH/MM3 (0-0.4); EOSINOPHIL % 1.2 % (0.0-4.0); HEMATOCRIT 31.2 % (35.0-46.0); HEMOGLOBIN 10.6 GM/DL (11.6-15.3); LYMPH % 28.9 % (9.0-44.0); LYMPHOCYTE # 3.2 TH/MM3 (1.0-4.8); MEAN CELL VOLUME 95.2 FL (80.0-100.0); MEAN CORPUSCULAR HEMOGLOBIN 32.3 PG (27.0-34.0); MEAN CORPUSCULAR HGB CONC 33.9 % (32.0-36.0); MEAN PLATELET VOLUME 8.8 FL (7.0-11.0); MONO % 6.4 % (0.0-8.0); MONOCYTE # 0.7 TH/MM3 (0-0.9); NEUT % 62.7 % (16.0-70.0); PLATELET COUNT 150 TH/MM3 (150-450); RED BLOOD COUNT 3.28 MIL/MM3 (4.00-5.30); RED CELL DISTRIBUTION WIDTH 12.2 % (11.6-17.2)
--- NOTE | 2017-08-01 06:15 | RADRPT ---
EXAM DATE: 08/01/2017 6:08 AM EDT AGE/SEX: 62 years / Female INDICATIONS: Shortness of breath. CLINICAL DATA: This is the patient's subsequent encounter. Patient reports that signs and symptoms h ave been present for 3 days and indicates a pain score of Nonresponsive. MEDICAL/SURGICAL HISTORY: None. None. COMPARISON: HPO, CHEST SINGLE AP, 07/31/2017. . FINDINGS: Single AP view of the chest. Endotracheal tube, nasogastric tube remain in place. Lungs are clear. No evidence of pleural effusion or pneumothorax. Cardiomediastinal silhouette unchanged. CONCLUSION: Lungs are clear. Electronically signed by: Dustin Salas MD 08/01/2017 6:14 AM EDT
--- NOTE | 2017-08-01 06:39 | HHI.PR ---
Subjective Remarks Was somewhat agitated last night due to intubation and CPAP weaning trial. She is more awake and alert this morning and is still on the weaning trial. About to be extubated this morning per discussion with Dr. Reece in critical care medicine. Much more cooperative this morning and last night per nurse note. Objective Vitals Vital Signs Date Time Temp Pulse Resp B/P (MAP) Pulse Ox O2 Delivery O2 Flow Rate FiO2 08/01/17 06:00 84 08/01/17 05:46 84 10 116/56 (76) 99 08/01/17 05:31 82 11 109/61 (77) 98 08/01/17 05:16 94 16 144/71 (95) 100 08/01/17 05:01 92 20 130/70 (90) 100 08/01/17 05:00 100 35 08/01/17 04:45 86 12 133/66 (88) 100 08/01/17 04:30 92 15 135/68 (90) 88 08/01/17 04:15 86 10 146/64 (91) 99 08/01/17 04:00 99 35 08/01/17 04:00 35 08/01/17 04:00 72 18 97/63 (74) 99 08/01/17 04:00 72 08/01/17 03:45 74 17 101/54 (70) 100 08/01/17 03:30 98.9 70 17 93/58 (70) 100 08/01/17 03:15 70 17 93/56 (68) 99 08/01/17 03:00 72 18 93/54 (67) 100 08/01/17 03:00 40 08/01/17 02:45 80 26 112/55 (74) 97 08/01/17 02:34 66 15 97/49 (65) 100 08/01/17 02:15 72 18 97/59 (72) 100 08/01/17 02:00 72 08/01/17 02:00 72 18 91/57 (68) 99 08/01/17 01:45 70 17 92/58 (69) 100 08/01/17 01:30 70 17 95/60 (72) 100 08/01/17 01:15 72 17 109/67 (81) 100 08/01/17 01:15 99 35 08/01/17 01:00 70 18 106/64 (78) 100 08/01/17 00:45 70 17 106/59 (75) 100 08/01/17 00:30 72 18 109/63 (78) 100 08/01/17 00:15 72 17 104/66 (79) 100 08/01/17 00:00 74 08/01/17 00:00 99.2 74 17 108/63 (78) 100 08/01/17 00:00 35 07/31/17 22:45 78 17 115/66 (82) 100 07/31/17 22:30 82 17 110/64 (79) 100 07/31/17 22:15 82 18 116/62 (80) 99 07/31/17 22:05 99 35 07/31/17 22:00 84 17 114/63 (80) 99 07/31/17 22:00 84 07/31/17 21:45 90 17 127/66 (86) 97 07/31/17 21:30 92 17 126/67 (86) 96 07/31/17 21:15 106 20 137/56 (83) 100 07/31/17 21:00 70 18 86/53 (64) 100 07/31/17 20:45 72 17 96/52 (67) 98 07/31/17 20:30 70 18 93/52 (66) 99 07/31/17 20:15 70 18 96/56 (69) 99 07/31/17 20:00 35 07/31/17 20:00 74 07/31/17 20:00 98.4 74 18 99/55 (70) 98 07/31/17 19:15 97 35 07/31/17 18:00 68 07/31/17 17:30 66 18 95/49 (64) 99 07/31/17 17:04 100 35 07/31/17 17:00 35 07/31/17 17:00 98.3 66 17 103/51 (68) 98 07/31/17 16:30 66 17 97/52 (67) 100 07/31/17 16:00 66 07/31/17 16:00 66 17 92/51 (65) 98 07/31/17 15:30 62 17 93/52 (66) 99 07/31/17 15:00 62 07/31/17 15:00 62 17 86/47 (60) 99 07/31/17 14:38 68 13 97/57 (70) 99 07/31/17 14:00 98.1 70 17 107/55 (72) 98 07/31/17 14:00 50 07/31/17 13:46 99 40 07/31/17 13:46 74 18 119/63 (81) 98 07/31/17 13:29 82 23 124/62 (82) 99 07/31/17 13:16 82 22 141/60 (87) 98 07/31/17 13:11 82 24 125/71 (89) 98 07/31/17 13:01 92 26 142/62 (88) 98 07/31/17 13:00 97 50 07/31/17 12:55 90 22 161/85 (110) 99 07/31/17 12:50 149/61 (90) 07/31/17 12:11 07/31/17 10:00 80 23 116/62 (80) 98 07/31/17 09:00 82 24 102/57 (72) 99 07/31/17 08:00 98.0 80 18 106/52 (70) 95 GENERAL: Obese, cooperative, no acute distress. Follow simple commands. SKIN: Warm and dry. HEAD: Normocephalic. EYES: No scleral icterus. No injection or drainage. NECK: Supple, trachea midline. No JVD or lymphadenopathy. CARDIOVASCULAR: Regular rate and rhythm without murmurs, gallops, or rubs. RESPIRATORY: Breath sounds equal bilaterally. No accessory muscle use. ET tube in place with CPAP trials ongoing. GASTROINTESTINAL: Abdomen soft, non-tender, nondistended. Bowel sounds normal MUSCULOSKELETAL: No cyanosis, or edema. Moves all extremities to command. Soft restraints bilateral upper extremities noted. BACK: No CVA tenderness. Result Diagram: 08/01/1741407/31/17414 Imaging Last 72 hours Impressions Chest X-Ray 07/30/171951 Signed Impressions: CONCLUSION: No active disease. Urinary Catheter: No Vascular Central Line Catheter: No A/P Problem List: (1) GI bleed ICD Codes: K92.2 - Gastrointestinal hemorrhage, unspecified Status: Acute Plan: EGD revealed ulcer yesterday with active bleeding. Cauterization and hemoclipping performed. Vital signs and hemoglobin stable. Patient was intubated near the end of procedure to protect her airway and is being extubated this morning. (2) Hematuria ICD Codes: R31.9 - Hematuria, unspecified Status: Acute Plan: Questionable etiology. Kidney stone noted on renal ultrasound. Patient has no symptoms of cystitis or other urinary infection. Her reaction to the contrast is hives so we may have to premedicate in the future to get a CT scan if needed. She is opposed to staying in the hospital for any additional time for this workup. Hematuria does need to be worked up as an outpatient I have discussed with her especially given her long history of smoking. She is agreeable to such workup but does not want to remain in the hospital for such. She is not having gross hematuria any longer and stone may be contributing. (3) Nicotine dependence with current use ICD Codes: F17.200 - Nicotine dependence, unspecified, uncomplicated Status: Chronic Plan: Provide NicoDerm. Encouraged cessation. Discharge Planning Hopefully discharge home tomorrow morning depending on her progress. Problem Qualifiers (1) GI bleed: Qualified Codes: K92.1 - Rubio Comer MD PhD Aug 01, 2017 06:39
[2017-08-01 07:10] LABS: PROTHROMBIN TIME - PATIENT 10.2 SEC (9.8-11.6)
--- NOTE | 2017-08-01 07:14 | HHI.CCPN ---
Subjective Remarks/Hospital Course This is a 62-year-old female who is seen today in consultation for critical care management. Patient presented to the ICU intubated and sedated. The patient originally came to the hospital because of generalized weakness, diaphoresis and black stools for 3 days. Patient had workup done emergency department and recommended hospitalization and the patient was seen by Dr. Aguayo for [facility]. Radio Station Audio Engineer was consulted for evaluation. Patient did have hemoglobin monitored during her stay in the hospital found to have a 12.6 upon initial evaluation and it decreased to 10.3. Patient was taken for EGD today. The patient was anesthetized with Diprivan and placed in the left lateral decubitus position. Direct visualization was performed of a actively bleeding ulcer in the duodenal bulb which was injected with 4 cc epinephrine, cauterized with gold probe, 2 clips were placed with complete can roll of the bleeding. Patient was having retching and was at risk for aspiration. The patient was urgently intubated for airway protection. The patient was then transferred to ICU for continued care of the patient while she is intubated on ventilator. Upon evaluating the patient she is intubated sedated, unable to give any information. Patient with some mild agitation while intubated. This was controlled with increased sedation. Patient resting comfortably this time. Ventilating well. Subjective: 08/01: No acute events overnight. The patient was initiated on CPAP trials early this morning. SBT parameters successfully obtained. The patient was extubated at 0630. The patient continues on normal saline maintenance infusion and Protonix infusion. Defer diet recommendations per GI. Objective Vital Signs Date Time Temp Pulse Resp B/P (MAP) Pulse Ox O2 Delivery O2 Flow Rate FiO2 08/01/17 06:00 84 08/01/17 05:46 10 116/56 (76) 99 08/01/17 05:00 35 08/01/17 03:30 98.9 07/30/17 23:10 Room Air Intake and Output 08/01/17 08/01/17 08/02/17 08:00 16:00 00:00 Intake Total 1100 ml Output Total 975 ml Balance 125 ml Result Diagram: 08/01/17 0415 07/31/17 0415 Other Results Laboratory Tests Test 07/31/17 14:05 Blood Gas Puncture Site LT RADIAL Blood Gas Patient Temperature 37.0 Blood Gas HCO3 22 mmol/L (22-26) Blood Gas Base Excess -2.8 mmol/L (-2-2) Blood Gas Oxygen Saturation 95 % (90-100) Arterial Blood pH 7.35 (7.380-7.420) Arterial Blood Partial Pressure CO2 40 mmHg (38-42) Arterial Blood Partial Pressure O2 93 mmHg (61-120) Arterial Blood Oxygen Content 12.7 Vol % (12.0-20.0) Arterial Blood Carboxyhemoglobin 2.0 % (0-4) Arterial Blood Methemoglobin 1.2 % (0-2) Blood Gas Hemoglobin 9.5 G/DL (12.0-16.0) Oxygen Delivery Device VENT Blood Gas Ventilator Setting AC18/VT500/PEEP 5 Blood Gas Inspired Oxygen 40 % Imaging Last Impressions Renal Ultrasound 07/31/17 0000 Signed Impressions: CONCLUSION: 1. 6 mm left renal stone without hydronephrosis. Chest X-Ray 07/31/17 Signed Impressions: CONCLUSION: Endotracheal tube and nasogastric tube is detailed above. Clear lungs. Objective Remarks GENERAL: Well-developed, obese with BMI 34.4, patient is awake and responsive HEENT: Head is normocephalic without any lesions or masses noted. Facial features are symmetric. Eyes: Pupils equal round reactive to light. Extraocular muscles are intact. Conjunctivae were clear. NECK: Supple without any masses. Trachea midline no deviation. No JVD, no bruits are appreciated CARDIAC: Regular rhythm, regular rate. S1/S2 are heard. No murmurs gallops or rubs. LUNGS: Clear to auscultation bilaterally. No wheeze, rhonchi or rales. No use of accessory muscles on inspiration or expiration. ABDOMEN: Soft, nontender. Nondistended. Bowel sounds heard in all 4 quadrants. No organomegaly or masses. Negative rebound, negative guarding EXTREMITIES: No edema, pulses are equal bilaterally. No cyanosis or clubbing NEUROLOGY: GCS 15 .Cranial nerves II through XII grossly intact. Deep tendon reflexes are 2+ in upper and lower extremities bilaterally. A/P Problem List: (1) Acute respiratory failure ICD Code: J96.00 - Acute respiratory failure, unspecified whether with hypoxia or hypercapnia (2) Upper GI bleed ICD Code: K92.2 - Gastrointestinal hemorrhage, unspecified Assessment and Plan NEUROLOGY Neurochecks per ICU protocol Acetaminophen for pain and/or temperature greater than 101.0 PULMONARY Acute respiratory failure Airway protection from aspiration Chronic smoker Patient intubated 07/31/17 by anesthesiology with 7.0 cuffed ET tube, extubated Maintain O2 saturation greater than 92%. Provide O2 1-4 L Duo nebs every 6 hours and every 4 hours as needed for wheezing Patient does have nicotine patch Incentive spirometry while awake CARDIOLOGY Blood pressure and heart rate stable at this time Continue monitor MAP to maintain greater than 65 GASTROENTEROLOGY Upper GI bleed Actively bleeding duodenal ulcer Continue Protonix infusion per GI GI following the patient Status post EGD with injection of epinephrine, cauterized with gold probe, 2 clips were placed with complete control of bleeding Bowel regimen RENAL Azotemia Hematuria Renal ultrasound indicated 6 mm left renal stone without hydronephrosis Continue monitor renal function Patient continued on normal saline at 100ml/hr Urinary catheter was placed to monitor input and output Continue monitor renal function INFECTIOUS DISEASE No signs or source of infection at this time Monitor for fever, bolivar culture if needed ENDOCRINOLOGY Continue to monitor glucose D/C Accuchecks Q 4 hours with low dose sliding scale insulin HEMATOLOGY Continue monitor hemoglobin and hematocrit, transfuse if hemoglobin below 8.0 PROPHYLAXIS GI protection with Protonix DVT prevention with sequential compression devices, avoid chemical prophylaxis secondary to GI bleed LINES Peripheral IV CODE STATUS Full code Level 2 follow up. Plan transfer to [facility] in [facility] Zuleima Reece MD Aug 01, 2017 07:14
[2017-08-01 08:30] LABS: CHLORIDE 113 MEQ/L (98-107); SODIUM (NA) 144 MEQ/L (136-145)
[2017-08-01 08:53] LABS: CALCIUM 7.7 MG/DL (8.5-10.1); GLUCOSE,RANDOM 121 MG/DL (74-106)
[2017-08-01 08:54] LABS: BICARBONATE 23.2 MEQ/L (21.0-32.0)
[2017-08-01] MEDS: SODIUM CHLORIDE 0.9% FLUSH 10 ML FLUSH IV FLUSH SCH ×2 (09:00→20:14)
[2017-08-01] MEDS: NICOTINE 14 MG/24 HR PATCH T-DERMAL SCH (09:00)
[2017-08-01] MEDS: REMOVE OLD PATCH T-DERMAL SCH (09:00)
[2017-08-01] MEDS ORDERED: PANTOPRAZOLE SODIUM 40 MG VIAL IV PUSH SCH (09:00)
[2017-08-01] MEDS: ARTIFICIAL TEARS OPTH SOLN 15 ML BTL EACH EYE SCH ×3 (09:00→17:00)
[2017-08-01 09:01] LABS: GLOMERULAR FILTRATION RATE 68 ML/MIN (>89)
[2017-08-01 09:07] LABS: ALBUMIN 2.9 GM/DL (3.4-5.0); ALKALINE PHOSPHATASE 44 U/L (45-117); ALT (GPT) 18 U/L (10-53); AST (GOT) 14 U/L (15-37); BLOOD UREA NITROGEN 23 MG/DL (7-18); CREATININE 0.85 MG/DL (0.50-1.00); PHOSPHORUS 3.8 MG/DL (2.5-4.9); TOTAL BILIRUBIN ADULT 0.7 MG/DL (0.2-1.0); TOTAL PROTEIN 5.8 GM/DL (6.4-8.2)
[2017-08-01] MEDS: RESP: ALBUTEROL 2.5 MG/IPRATROPIUM 0.5 MG NEB (SCH) INH ×3 (09:29→21:20)
[2017-08-01] MEDS: DOCUSATE SODIUM 50 MG/SENNA 8.6 MG TAB PO SCH ×2 (09:51→20:14)
[2017-08-01] MEDS: ACETAMINOPHEN 325 MG TAB PO PRN ×2 (10:02→18:23)
--- NOTE | 2017-08-01 20:17 | HHI.GIFU ---
Subjective Remarks Patient was extubated this morning, sitting in bed without any problem, tolerating diet, wants to go home, no sign of active bleeding Objective Vitals I&O Vital Signs Date Time Temp Pulse Resp B/P (MAP) Pulse Ox O2 Delivery O2 Flow Rate FiO2 08/01/17 15:33 99.1 89 21 109/49 (69) 99 08/01/17 15:00 86 08/01/17 14:00 86 08/01/17 13:47 98 18 122/52 (75) 98 08/01/17 11:04 99.1 100 22 121/56 (77) 96 08/01/17 11:00 98 29 109/52 (71) 95 08/01/17 11:00 98 08/01/17 10:41 104 19 121/48 (72) 95 08/01/17 10:00 108 25 161/61 (94) 99 08/01/17 10:00 108 08/01/17 09:34 98 21 08/01/17 09:30 92 20 130/56 (80) 97 08/01/17 09:00 88 18 106/58 (74) 99 08/01/17 09:00 88 08/01/17 08:30 90 25 120/59 (79) 98 08/01/17 08:00 84 08/01/17 07:05 98.1 94 23 141/75 (97) 99 08/01/17 06:30 96 Nasal Cannula 3 08/01/17 06:00 84 08/01/17 05:46 84 10 116/56 (76) 99 08/01/17 05:31 82 11 109/61 (77) 98 08/01/17 05:16 94 16 144/71 (95) 100 08/01/17 05:01 92 20 130/70 (90) 100 08/01/17 05:00 100 35 08/01/17 04:45 86 12 133/66 (88) 100 08/01/17 04:30 92 15 135/68 (90) 88 08/01/17 04:15 86 10 146/64 (91) 99 08/01/17 04:00 99 35 08/01/17 04:00 35 08/01/17 04:00 72 18 97/63 (74) 99 08/01/17 04:00 72 08/01/17 03:45 74 17 101/54 (70) 100 08/01/17 03:30 98.9 70 17 93/58 (70) 100 08/01/17 03:15 70 17 93/56 (68) 99 08/01/17 03:00 72 18 93/54 (67) 100 08/01/17 03:00 40 08/01/17 02:45 80 26 112/55 (74) 97 08/01/17 02:34 66 15 97/49 (65) 100 08/01/17 02:15 72 18 97/59 (72) 100 08/01/17 02:00 72 08/01/17 02:00 72 18 91/57 (68) 99 08/01/17 01:45 70 17 92/58 (69) 100 08/01/17 01:30 70 17 95/60 (72) 100 08/01/17 01:15 72 17 109/67 (81) 100 08/01/17 01:15 99 35 08/01/17 01:00 70 18 106/64 (78) 100 08/01/17 00:45 70 17 106/59 (75) 100 08/01/17 00:30 72 18 109/63 (78) 100 08/01/17 00:15 72 17 104/66 (79) 100 08/01/17 00:00 74 08/01/17 00:00 99.2 74 17 108/63 (78) 100 08/01/17 00:00 35 07/31/17 22:45 78 17 115/66 (82) 100 07/31/17 22:30 82 17 110/64 (79) 100 07/31/17 22:15 82 18 116/62 (80) 99 07/31/17 22:05 99 35 07/31/17 22:00 84 17 114/63 (80) 99 07/31/17 22:00 84 07/31/17 21:45 90 17 127/66 (86) 97 07/31/17 21:30 92 17 126/67 (86) 96 07/31/17 21:15 106 20 137/56 (83) 100 07/31/17 21:00 70 18 86/53 (64) 100 07/31/17 20:45 72 17 96/52 (67) 98 07/31/17 20:30 70 18 93/52 (66) 99 I/O 07/31/17 07/31/17 07/31/17 08/01/17 08/01/17 08/01/17 07:00 15:00 23:00 07:00 15:00 23:00 Intake Total 1100 ml 929 ml 1625 ml 1130 ml 0 ml 850 ml Output Total 325 ml 975 ml 1525 ml Balance 1100 ml 929 ml 1300 ml 155 ml 0 ml -675 ml Intake Oral 0 ml 0 ml 850 ml IV Total 1100 ml 429 ml 1625 ml 1130 ml Other 500 ml Output Urine Total 250 ml 650 ml 1525 ml Gastric Drainage Total 75 ml 325 ml # Voids 3 3 Laboratory Laboratory Tests Test 08/01/17 04:15 08/01/17 06:45 White Blood Count 11.0 Red Blood Count 3.28 Hemoglobin 10.6 Hematocrit 31.2 Mean Corpuscular Volume 95.2 Mean Corpuscular Hemoglobin 32.3 Mean Corpuscular Hemoglobin Concent 33.9 Red Cell Distribution Width 12.2 Platelet Count 150 Mean Platelet Volume 8.8 Neutrophils (%) (Auto) 62.7 Lymphocytes (%) (Auto) 28.9 Monocytes (%) (Auto) 6.4 Eosinophils (%) (Auto) 1.2 Basophils (%) (Auto) 0.8 Neutrophils # (Auto) 6.9 Lymphocytes # (Auto) 3.2 Monocytes # (Auto) 0.7 Eosinophils # (Auto) 0.1 Basophils # (Auto) 0.1 CBC Comment DIFF FINAL Differential Comment Prothrombin Time 10.2 Prothromb Time International Ratio 1.0 Blood Urea Nitrogen 23 Creatinine 0.85 Random Glucose 121 Total Protein 5.8 Albumin 2.9 Calcium Level 7.7 Phosphorus Level 3.8 Magnesium Level 2.0 Alkaline Phosphatase 44 Aspartate Amino Transf (AST/SGOT) 14 Alanine Aminotransferase (ALT/SGPT) 18 Total Bilirubin 0.7 Sodium Level 144 Potassium Level 4.0 Chloride Level 113 Carbon Dioxide Level 23.2 Anion Gap 8 Estimat Glomerular Filtration Rate 68 Physical Exam HEENT: Pupils round and reactive to light; normocephalic; atraumatic; no jaundice. Throat is clear. NECK: Neck is supple, no JVD, no lymphadenopathy. CHEST: Chest is clear to auscultation and percussion. CARDIAC: Regular rate and rhythm with no murmur gallop or rubs. ABDOMEN: Soft, nondistended, nontender; no hepatosplenomegaly; bowel sounds are present in all four quadrants. Obese EXTREMITIES: No clubbing, cyanosis, or edema. SKIN: Normal; no rash; no jaundice. CORRESPONDENCE DICTATOR: No focal deficits; alert and oriented times three. Assessment and Plan Plan Patient has significant GI bleed from a bleeding ulcer in the duodenum this was treated with cautery injection and clipping, patient vomited during the procedure so she was intubated for airway protection, chest x-ray is negative, no sign of aspiration, patient can continue on PPI and be discharged from GI standpoint if cleared by critical care as far as respiratory mari patient was advised to avoid NSAIDs , If she is positive for H. pylori she will need treatment for that Daniel Lyon MD Aug 01, 2017 20:17
[2017-08-02] VITALS (13 sets, daily range): BP systolic 91–122; BP diastolic 48–72; PULSE 70–90; RESP 11–31; TEMP 98.1–99.1; O2SAT 94–97
[2017-08-02] MEDS: PANTOPRAZOLE INJ 80 MG in SODIUM CHLORIDE 0.9% INJ 100 ML IV SCH (00:26)
[2017-08-02] MEDS: CHLORHEXIDINE GLUCONATE 2 % 1 PACK (2 CLOTHS) TOP SCH (00:27)
[2017-08-02] MEDS: RESP: ALBUTEROL 2.5 MG/IPRATROPIUM 0.5 MG NEB (SCH) INH ×2 (04:00→09:30)
[2017-08-02] MEDS: SODIUM CHLOR 0.9% 1000 ML INJ 1,000 ML IV SCH (04:04)
[2017-08-02 04:40] LABS: HEMATOCRIT 23.8 % (35.0-46.0); MEAN CELL VOLUME 95.4 FL (80.0-100.0); MEAN CORPUSCULAR HEMOGLOBIN 32.2 PG (27.0-34.0); MEAN CORPUSCULAR HGB CONC 33.8 % (32.0-36.0); MEAN PLATELET VOLUME 8.6 FL (7.0-11.0); PLATELET COUNT 125 TH/MM3 (150-450); RED BLOOD COUNT 2.49 MIL/MM3 (4.00-5.30); RED CELL DISTRIBUTION WIDTH 12.4 % (11.6-17.2); WHITE BLOOD COUNT 5.8 TH/MM3 (4.0-11.0)
--- NOTE | 2017-08-02 07:00 | HHI.PR ---
Subjective Remarks Overall feeling quite well. She is sitting up in the chair in the room this morning. Has been ambulating throughout the unit several times yesterday. Desires discharge home. Denies any increase shortness of breath. Denies any nausea or vomiting. Denies any hematochezia or further melanotic stools. Objective Vitals Vital Signs Date Time Temp Pulse Resp B/P (MAP) Pulse Ox O2 Delivery O2 Flow Rate FiO2 08/02/17 06:00 80 11 109/64 (79) 96 08/02/17 06:00 80 08/02/17 05:16 82 27 117/58 (77) 97 08/02/17 04:00 99.0 90 31 121/72 (88) 96 08/02/17 04:00 90 08/02/17 03:00 82 16 112/52 (72) 94 08/02/17 02:00 78 08/02/17 02:00 78 18 105/52 (69) 94 08/02/17 01:00 80 17 91/48 (62) 94 08/02/17 00:00 99.1 84 18 106/52 (70) 94 08/02/17 00:00 84 08/01/17 22:00 88 08/01/17 22:00 88 6 134/61 (85) 96 08/01/17 21:21 95 21 08/01/17 21:00 86 16 124/59 (80) 100 08/01/17 20:30 86 08/01/17 20:30 99.0 86 25 118/43 (68) 99 08/01/17 15:33 99.1 89 21 109/49 (69) 99 08/01/17 15:00 86 08/01/17 14:00 86 08/01/17 13:47 98 18 122/52 (75) 98 08/01/17 11:04 99.1 100 22 121/56 (77) 96 08/01/17 11:00 98 29 109/52 (71) 95 08/01/17 11:00 98 08/01/17 10:41 104 19 121/48 (72) 95 08/01/17 10:00 108 25 161/61 (94) 99 08/01/17 10:00 108 08/01/17 09:34 98 21 08/01/17 09:30 92 20 130/56 (80) 97 08/01/17 09:00 88 18 106/58 (74) 99 08/01/17 09:00 88 08/01/17 08:30 90 25 120/59 (79) 98 08/01/17 08:00 84 08/01/17 07:05 98.1 94 23 141/75 (97) 99 GENERAL: Obese, sitting in chair, no acute distress. Alert and oriented. SKIN: Warm and dry. HEAD: Normocephalic. EYES: No scleral icterus. No injection or drainage. NECK: Supple, trachea midline. No JVD or lymphadenopathy. CARDIOVASCULAR: Regular rate and rhythm without murmurs, gallops, or rubs. RESPIRATORY: Breath sounds equal bilaterally. No accessory muscle use. GASTROINTESTINAL: Abdomen soft, non-tender, nondistended. Bowel sounds normal. MUSCULOSKELETAL: No cyanosis, or edema. Moves all extremities well. BACK: No CVA tenderness. Result Diagram: 08/02/17 0405 08/01/17 0645 Imaging Last 72 hours Impressions Chest X-Ray 07/30/171951 Signed Impressions: CONCLUSION: No active disease. Urinary Catheter: No Vascular Central Line Catheter: No A/P Problem List: (1) GI bleed ICD Codes: K92.2 - Gastrointestinal hemorrhage, unspecified Status: Acute Plan: EGD revealed ulcer on July 31 with active bleeding. Cauterization and hemoclipping performed. Vital signs stable. Patient was intubated near the end of procedure to protect her airway and was extubated yesterday morning. Her hemoglobin has dropped somewhat overnight but it is noted that she has remained on IV fluids. She has no symptoms of worsening anemia and this may be somewhat hemodilution. We will repeat hemoglobin around noon and if stable will discharge home. 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 (2) Hematuria ICD Codes: R31.9 - Hematuria, unspecified Status: Acute Plan: Questionable etiology. Kidney stone noted on renal ultrasound. Urine a bit cloudy now and will use Cipro short course. She has no other signs or symptoms of UTI however. Her reaction to the contrast is hives so we may have to premedicate in the future to get a CT scan if needed. She is opposed to staying in the hospital for any additional time for this workup. Hematuria does need to be worked up as an outpatient I have discussed with her especially given her long history of smoking. She is agreeable to such workup but does not want to remain in the hospital for such. She is not having gross hematuria any longer and stone may be contributing to RBCs and sediment in her urine. (3) Nicotine dependence with current use ICD Codes: F17.200 - Nicotine dependence, unspecified, uncomplicated Status: Chronic Plan: Provide NicoDerm. Encouraged cessation. Discharge Planning Hopefully discharge home later today depending on hemoglobin stability. Problem Qualifiers (1) GI bleed: Qualified Codes: K92.1 - Rubio Comer MD PhD Aug 02, 2017 06:59
[2017-08-02] MEDS ORDERED: NICO14DI23 T-DERMAL (07:06)
[2017-08-02] MEDS ORDERED: PANT40TA3 PO (07:06)
[2017-08-02] MEDS ORDERED: CIPR-9 PO (07:06)
--- NOTE | 2017-08-02 07:12 | HHI.DS ---
Discharge Summary Admission Date Jul 31, 2017 at 13:06 Discharge Date: Aug 02, 2017 Admitting Diagnosis Upper GI bleed (1) GI bleed Diagnosis: Principal ICD Codes: K92.2 - Gastrointestinal hemorrhage, unspecified Status: Acute (2) Hematuria Diagnosis: Secondary ICD Codes: R31.9 - Hematuria, unspecified Status: Acute (3) Nicotine dependence with current use Diagnosis: Secondary ICD Codes: F17.200 - Nicotine dependence, unspecified, uncomplicated Status: Chronic [facility], Dr. Rock Procedures EGD performed July 31 revealed active duodenal bleed requiring cauterization and clipping. Brief History 62-year-old female presents to the emergency department by private transportation under the care of her spouse for complaint of generalized weakness, diaphoresis and black stools 3 today with associated nausea. Patient states that she has had black stools once in the past associated with diverticulitis and lower abdominal pain a couple of years ago. Patient denies any lower quadrant or left lower quadrant abdominal pain. Patient does complain of some mild epigastric pain. Patient had been using nonsteroidal anti -inflammatory medications on an as-needed basis until about 2-3 weeks ago when she started noticing that when she would urinate she had blood in her urine. Patient has not noticed any blood in her urine recently. She denies any dysuria , frequency, urgency or other urinary complaints at this point. No fevers or chills. Patient's had nausea but no vomiting. Patient denies any known history of esophagitis gastritis or peptic ulcer disease. Patient does take a baby aspirin and fish old each day. Patient takes no prescription medications. Patient has history of previous upper endoscopy that was reportedly normal approximately 2 years ago when she was living in [place] as well as underwent colonoscopy at the same time and had 3 benign polyps excised per her report. Patient's had no red blood per rectum. Patient has had no hematemesis or coffee -ground emesis. Patient denies any chest pain or shortness of breath. Patient' s had no near syncope or syncope, but has a little lightheadedness when standing from seated position. Patient denies any cardiac history. Patient reports symptoms have been present 1 day. Patient has had poor oral intake over the last day. Patient denies history of alcohol use or pancreatitis. Her main complaint on my exam this morning is that she is hungry and does not want to stay in the hospital very long. CBC/BMP: 08/02/17 0405 08/01/17 0645 Significant Findings Laboratory Tests Test 07/30/17 20:00 07/30/17 20:40 07/31/17 04:15 07/31/17 13:15 Red Blood Count 3.99 MIL/MM3 (4.00-5.30) 3.28 MIL/MM3 (4.00-5.30) Activated Partial Thromboplast Time 23.7 SEC (24.3-30.1) Blood Urea Nitrogen 42 MG/DL (7-18) 34 MG/DL (7-18) Random Glucose 161 MG/DL (74-106) 109 MG/DL (74-106) Aspartate Amino Transf (AST/SGOT) 11 U/L (15-37) Chloride Level 109 MEQ/L (98-107) 114 MEQ/L (98-107) Estimat Glomerular Filtration Rate 61 ML/MIN (>89) 76 ML/MIN (>89) Urine Occult Blood LARGE (NEG) Urine Leukocyte Esterase SMALL (NEG) Urine RBC 50-99 /hpf (0-3) Urine WBC 6-8 /hpf (0-5) Urine Squamous Epithelial Cells 6-8 /hpf (0-5) Urine Bacteria RARE /hpf (NONE) Hemoglobin 10.3 GM/DL (11.6-15.3) Hematocrit 30.9 % (35.0-46.0) Basophils (%) (Auto) 2.7 % (0.0-2.0) Calcium Level 8.0 MG/DL (8.5-10.1) Test 07/31/17 14:05 07/31/17 14:59 08/01/17 04:15 08/01/17 06:45 Blood Gas Base Excess -2.8 mmol/L (-2-2) Arterial Blood pH 7.35 (7.380-7.420) Blood Gas Hemoglobin 9.5 G/DL (12.0-16.0) Hematocrit 27.6 % (35.0-46.0) 31.2 % (35.0-46.0) Red Blood Count 3.28 MIL/MM3 (4.00-5.30) Hemoglobin 10.6 GM/DL (11.6-15.3) Blood Urea Nitrogen 23 MG/DL (7-18) Random Glucose 121 MG/DL (74-106) Total Protein 5.8 GM/DL (6.4-8.2) Albumin 2.9 GM/DL (3.4-5.0) Calcium Level 7.7 MG/DL (8.5-10.1) Alkaline Phosphatase 44 U/L (45-117) Aspartate Amino Transf (AST/SGOT) 14 U/L (15-37) Chloride Level 113 MEQ/L (98-107) Estimat Glomerular Filtration Rate 68 ML/MIN (>89) Test 08/02/17 04:05 Red Blood Count 2.49 MIL/MM3 (4.00-5.30) Hemoglobin 8.0 GM/DL (11.6-15.3) Hematocrit 23.8 % (35.0-46.0) Platelet Count 125 TH/MM3 (150-450) Imaging Last 72 hours Impressions Chest X-Ray 08/01/17 0000 Signed Impressions: CONCLUSION: Lungs are clear. Renal Ultrasound 07/31/17 0000 Signed Impressions: CONCLUSION: 1. 6 mm left renal stone without hydronephrosis. Chest X-Ray 07/31/17 0000 Signed Impressions: CONCLUSION: Endotracheal tube and nasogastric tube is detailed above. Clear lungs. Chest X-Ray 07/30/171951 Signed Impressions: CONCLUSION: No active disease. Hospital Course Patient admitted with melanotic stool and presumed upper GI bleed. She remained relatively stable and had EGD on hospital day #2 which revealed an active bleeding duodenal ulcer. Cauterization and clipping were performed by gastroenterology. Apparently near the end of the procedure there was some question as to possible aspiration risk and she required intubation. Critical care medicine was involved during the day that she was intubated. She was able to be extubated the next morning without incident. She tolerated diet quite well and was ambulating throughout the unit on the day prior to discharge. As noted her vitals remained stable. Hemoglobin did drop on the day of planned discharge down to 8 from a previous value of around 10-1/2. It is noted that IV fluids have been running throughout that. And there may be some hemodilution contributing. Clinically the patient appeared quite stable. Hb remained stable at 8.6 prior to dc. Platelets dropping a bit but still above 100. Advised to watch for signs of bleeding. Repeat CBC in 2 days. Pt Condition on Discharge: Stable Discharge Disposition: Discharge Home Discharge Instructions DIET: Follow Instructions for: Heart Healthy Diet Speech Therapy-Diet Recommends: Regular Activities you can perform: Weight Bearing as Janee Other Activity Instructions: Start slowly and advance activity as tolerated. Follow up Referrals: Gastroenterology PCP Follow-up Urology @ [facility] with Clinton Zepeda MD New Orders: CBC WITH DIFF - 2-3 Days New Medications: Ferrous Gluconate (Ferrous Gluconate) 240 Mg (27 Mg Iron) Tab 240 MG PO DAILY for Nutritional Supplement, #30 TAB 0 Refills Ciprofloxacin (Cipro) 500 Mg Tab 500 MG PO Q12HR for abn urine findings, #6 TAB Nicotine (Eq Nicotine) 14 Mg/24 Hour Dis 1 PATCH T-DERMAL DAILY for tob use, #31 PATCH Pantoprazole (Pantoprazole) 40 Mg Tab 40 MG PO DAILY for ulcer, #31 TAB Discontinued Medications: Aspirin (Aspirin) 81 Mg Chew 81 MG CHEW DAILY, TAB 0 Refills [place]-3 Fatty Acids (Fish Oil Concentrate) 1,000 Mg Capsule 1000 MG PO DAILY Additional Information return for any signs of bleeding. Avoid NSAIDs, EtOH Rubio Aguayo MD PhD Aug 02, 2017 07:12
[2017-08-02] MEDS ORDERED: FERR240T PO (07:13)
[2017-08-02] MEDS: NICOTINE 14 MG/24 HR PATCH T-DERMAL SCH (07:32)
[2017-08-02] MEDS: REMOVE OLD PATCH T-DERMAL SCH (07:32)
[2017-08-02] MEDS: CHLORHEXIDINE 0.12% (ORAL KIT) 15 ML CUP MT SCH (07:32)
[2017-08-02] MEDS: ARTIFICIAL TEARS OPTH SOLN 15 ML BTL EACH EYE SCH ×2 (07:32→12:24)
[2017-08-02] MEDS: DOCUSATE SODIUM 50 MG/SENNA 8.6 MG TAB PO SCH (08:10)
[2017-08-02] MEDS: SODIUM CHLORIDE 0.9% FLUSH 10 ML FLUSH IV FLUSH SCH (08:10)
[2017-08-02] MEDS ORDERED: PANTOPRAZOLE SOD 40 MG DELAYED RELEASE TAB PO SCH (09:00)
[2017-08-02] MEDS ORDERED: CIPROFLOXACIN 500 MG TAB PO SCH (09:00)
[2017-08-02 12:02] LABS: AUTOMATED NEUTROPHIL # 3.8 TH/MM3 (1.8-7.7); BASOPHIL # 0.1 TH/MM3 (0-0.2); BASOPHIL % 1.6 % (0.0-2.0); EOSINOPHIL # 0.2 TH/MM3 (0-0.4); EOSINOPHIL % 2.4 % (0.0-4.0); HEMATOCRIT 24.7 % (35.0-46.0); HEMOGLOBIN 8.6 GM/DL (11.6-15.3); LYMPH % 31.5 % (9.0-44.0); LYMPHOCYTE # 2.1 TH/MM3 (1.0-4.8); MEAN CELL VOLUME 94.7 FL (80.0-100.0); MEAN CORPUSCULAR HEMOGLOBIN 32.9 PG (27.0-34.0); MEAN CORPUSCULAR HGB CONC 34.7 % (32.0-36.0); MEAN PLATELET VOLUME 9.1 FL (7.0-11.0); MONO % 5.7 % (0.0-8.0); MONOCYTE # 0.4 TH/MM3 (0-0.9); NEUT % 58.8 % (16.0-70.0); PLATELET COUNT 103 TH/MM3 (150-450); RED BLOOD COUNT 2.61 MIL/MM3 (4.00-5.30); RED CELL DISTRIBUTION WIDTH 12.6 % (11.6-17.2); WHITE BLOOD COUNT 6.6 TH/MM3 (4.0-11.0)
== END 2017-08-02 13:13 | disposition home or self-care (01) | DRG 378 ==
LOC: PHED 19:22 → PHEDA 21:00 → PHICU 07-31 00:16 → OBSVTOIN 07-31 13:06
PROVIDERS: ADMIT Family Medicine; ATTEND Family Medicine
PROC: 5A1935Z Respiratory Ventilation, Less than 24 Consecutive Hours (ICD-10-PCS; 2017-07-31)
PROC: 0DB78ZX Excision of Stomach, Pylorus, Via Natural or Artificial Opening Endoscopic, Diagnostic (ICD-10-PCS; 2017-07-31)
PROC: 0BH17EZ Insertion of Endotracheal Airway into Trachea, Via Natural or Artificial Opening (ICD-10-PCS; 2017-07-31)
PROC: 0W3P8ZZ Control Bleeding in Gastrointestinal Tract, Via Natural or Artificial Opening Endoscopic (ICD-10-PCS; principal; 2017-07-31 11:53)
DX: K26.4 Chronic or unspecified duodenal ulcer with hemorrhage (principal); D62 Acute posthemorrhagic anemia; N20.0 Calculus of kidney; E66.9 Obesity, unspecified; K29.50 Unspecified chronic gastritis without bleeding; R79.89 Other specified abnormal findings of blood chemistry; F17.210 Nicotine dependence, cigarettes, uncomplicated; Z68.34 Body mass index [BMI] 34.0-34.9, adult; Z91.010 Allergy to peanuts; Z91.040 Latex allergy status; Z91.041 Radiographic dye allergy status
CPT/HCPCS: 36600; 71045; 76775; 80048; 80053; 81001; 82805; 82948; 83690; 83735; 84100; 85014; 85025; 85027; 85610; 85730; 86850; 86900; 86901; 87641; 88305; 88312; 94002; 94003; 94150; 94640; 94664; 96365; 96366; 96375; 96376; C9113; G0378; J0171; J2250; J2765; J3010; J7030; J7040

== ENCOUNTER → 2017-08-04 | Outpatient (CLI) | payer OTHER ==
[~2017-08-04] MED LIST: CIPR-9 PO; FERR240T PO; GUAISOL PO; NICO14DI23 T-DERMAL; PANT40TA3 PO
[2017-08-04 15:42] LABS: AUTOMATED NEUTROPHIL # 3.6 TH/MM3 (1.8-7.7); BASOPHIL % 0.3 % (0.0-2.0); EOSINOPHIL # 0.2 TH/MM3 (0-0.4); HEMATOCRIT 24.6 % (35.0-46.0); HEMOGLOBIN 8.6 GM/DL (11.6-15.3); LYMPH % 27.9 % (9.0-44.0); LYMPHOCYTE # 1.7 TH/MM3 (1.0-4.8); MEAN CORPUSCULAR HEMOGLOBIN 32.6 PG (27.0-34.0); MEAN CORPUSCULAR HGB CONC 35.1 % (32.0-36.0); MEAN PLATELET VOLUME 8.2 FL (7.0-11.0); MONO % 7.1 % (0.0-8.0); MONOCYTE # 0.4 TH/MM3 (0-0.9); NEUT % 60.7 % (16.0-70.0); PLATELET COUNT 229 TH/MM3 (150-450); RED BLOOD COUNT 2.65 MIL/MM3 (4.00-5.30); RED CELL DISTRIBUTION WIDTH 13.4 % (11.6-17.2); WHITE BLOOD COUNT 5.9 TH/MM3 (4.0-11.0)
== END ==
LOC: CLAB 14:57
PROVIDERS: ATTEND Family Medicine
DX: K92.2 Gastrointestinal hemorrhage, unspecified (principal)
CPT/HCPCS: 36415; 85025

== ENCOUNTER 2017-08-05 23:01 | Emergency (ER) | payer OTHER ==
[~2017-08-05] VITALS: Ht 170.2 cm; Wt 104.4 kg
[~2017-08-05 23:01] MED LIST changes: -GUAISOL PO
[2017-08-05 23:08] VITALS: BP 153/68; PULSE 86; RESP 26; TEMP 98.6; O2SAT 98
[2017-08-06 00:05] VITALS: BP 151/75; PULSE 82; RESP 18; O2SAT 96
--- NOTE | 2017-08-06 00:56 | PD ---
HPI Chief Complaint: Respiratory Symptoms Time Seen by Provider: 00:44 Travel History International Travel<30 days: No Contact w/Intl Traveler<30days: No Traveled to known affect area: No History of Present Illness HPI The patient is a 62-year-old female that was treated last week for a bleeding ulcer. They suspected some aspiration and the patient was intubated and put on the ventilator on Monday. She was discharged from the hospital last Monday , 3 days ago. She denies any fever but has a persistent cough. Cough is worse when she lies on her left side. She is on the ventilator approximately 24 hours. The patient came in tonight because the cough was constant. PFSH Past Medical History Arthritis: Yes (knees) Asthma: No Autoimmune Disease: No Heart Rhythm Problems: No Cancer: No Cardiovascular Problems: No High Cholesterol: Yes Chemotherapy: No Chest Pain: No Congestive Heart Failure: No COPD: No Cerebrovascular Accident: No Diabetes: No Diminished Hearing: No Diverticulitis: Yes Endocrine: No Gastrointestinal Disorders: Yes (diverticulitis) GERD: No Genitourinary: No Immune Disorder: No Kidney Stones: No Musculoskeletal: No Neurologic: No Psychiatric: No Reproductive: No Respiratory: No Migraines: No Radiation Therapy: No Renal Failure: No Seizures: No Sickle Cell Disease: No Sleep Apnea: No Thyroid Disease: No Ulcer: No Influenza Vaccination: No ?: Not Menopausal: Yes Past Surgical History Abdominal Surgery: Yes (gall bladder) AICD: No Arteriovenous Shunt: No Cardiac Surgery: No Cholecystectomy: Yes Ear Surgery: No Endocrine Surgery: No Eye Surgery: No Genitourinary Surgery: No Gynecologic Surgery: Yes (one ovary removed) Insulin Pump: No Joint Replacement: No Oral Surgery: No Pacemaker: No Thoracic Surgery: No Other Surgery: Yes (gallbladder, ovaries,) Social History Alcohol Use: No Tobacco Use: Yes (1ppd) Substance Use: No Allergies-Medications (Allergen,Severity, Reaction): Coded Allergies: Iodinated Contrast- Oral and IV Dye (Verified Allergy, Severe, 08/05/17) cabbage (Verified Allergy, Severe, 08/05/17) latex (Verified Allergy, Severe, 08/05/17) peanut (Verified Allergy, Severe, 08/05/17) peach (Verified Allergy, Unknown, Hives, 08/05/17) respiratory symptoms Reported Meds & Prescriptions Reported Meds & Active Scripts Active Ferrous Gluconate 240 Mg (27 Mg Iron) Tab 240 Mg PO DAILY Pantoprazole (Pantoprazole Sodium) 40 Mg Tab 40 Mg PO DAILY Review of Systems Except as stated in HPI: all other systems reviewed are Neg Physical Exam Narrative GENERAL: The patient is alert, oriented 3 in slight respiratory distress. Respiratory rate is 26 and blood pressure 153/68 with oximetry 98% on room air. Heart rate is normal at 86. The patient has a cough with a frequency of less than a minute. SKIN: Focused skin assessment warm/dry. No skin rash is seen. HEAD: Atraumatic. Normocephalic. EYES: Pupils equal and round. No scleral icterus. No injection or drainage. ENT: No nasal bleeding or discharge. Mucous membranes pink and moist. NECK: Trachea midline. No JVD. CARDIOVASCULAR: Regular rate and rhythm. No murmur appreciated. RESPIRATORY: No accessory muscle use. Clear to auscultation. Breath sounds equal bilaterally. GASTROINTESTINAL: Abdomen soft, non-tender, nondistended. Hepatic and splenic margins not palpable. MUSCULOSKELETAL: No obvious deformities. No clubbing. No cyanosis. No edema. NEUROLOGICAL: Awake and alert. No obvious cranial nerve deficits. Motor grossly within normal limits. Normal speech. PSYCHIATRIC: Appropriate mood and affect; insight and judgment normal. Data Data Last Documented VS Vital Signs Date Time Temp Pulse Resp B/P (MAP) Pulse Ox O2 Delivery O2 Flow Rate FiO2 08/06/17 02:15 84 18 145/75 (98) 96 Room Air 08/05/17 23:08 98.6 Orders Orders Complete Blood Count With Diff (08/06/17 00:52) Comprehensive Metabolic Panel (08/06/17 00:52) B-Type Natriuretic Peptide (08/06/17 00:52) Troponin I (08/06/17 00:52) Iv Access Insert/Monitor (08/06/17 00:52) Electrocardiogram (08/06/17 00:52) Ecg Monitoring (08/06/17 00:52) Oximetry (08/06/17 00:52) Oxygen Administration (08/06/17 00:52) Chest, Pa & Lat (08/06/17 00:52) Sodium Chloride 0.9% Flush (Ns Flush) (08/06/17 01:00) Methylprednisolone So Succ Inj (Solumedr (08/06/17 01:00) Albuterol-Ipratropium Neb (Duoneb Neb) (08/06/17 01:00) Labs Laboratory Tests Test 08/06/17 01:13 White Blood Count 7.1 TH/MM3 Red Blood Count 2.85 MIL/MM3 Hemoglobin 9.4 GM/DL Hematocrit 26.6 % Mean Corpuscular Volume 93.5 FL Mean Corpuscular Hemoglobin 33.0 PG Mean Corpuscular Hemoglobin Concent 35.3 % Red Cell Distribution Width 13.3 % Platelet Count 270 TH/MM3 Mean Platelet Volume 8.0 FL Neutrophils (%) (Auto) 57.4 % Lymphocytes (%) (Auto) 32.2 % Monocytes (%) (Auto) 6.7 % Eosinophils (%) (Auto) 3.2 % Basophils (%) (Auto) 0.5 % Neutrophils # (Auto) 4.1 TH/MM3 Lymphocytes # (Auto) 2.3 TH/MM3 Monocytes # (Auto) 0.5 TH/MM3 Eosinophils # (Auto) 0.2 TH/MM3 Basophils # (Auto) 0.0 TH/MM3 CBC Comment DIFF FINAL Differential Comment Blood Urea Nitrogen 9 MG/DL Creatinine 0.73 MG/DL Random Glucose 108 MG/DL Total Protein 7.0 GM/DL Albumin 3.1 GM/DL Calcium Level 8.7 MG/DL Alkaline Phosphatase 74 U/L Aspartate Amino Transf (AST/SGOT) 21 U/L Alanine Aminotransferase (ALT/SGPT) 31 U/L Total Bilirubin 0.5 MG/DL Sodium Level 144 MEQ/L Potassium Level 3.7 MEQ/L Chloride Level 109 MEQ/L Carbon Dioxide Level 27.1 MEQ/L Anion Gap 8 MEQ/L Estimat Glomerular Filtration Rate 81 ML/MIN Troponin I LESS THAN 0.02 NG/ML B-Type Natriuretic Peptide 37 PG/ML [facility] Medical Decision Making Medical Screen Exam Complete: Yes Emergency Medical Condition: Yes Medical Record Reviewed: Yes Interpretation(s) The EKG shows sinus rhythm and is normal. The CBC is normal except for hemoglobin of 9.4 and hematocrit of 26.6. The complete metabolic profile shows a GFR of 81, albumin 3.1 but is otherwise unremarkable. The troponin I is normal. The BNP is normal. The chest x-ray shows no acute cardiopulmonary disease. Differential Diagnosis Aspiration pneumonia, bacterial pneumonia, bronchitis, hypoxemia, electrolyte disorder, anemia Narrative Course The patient has a persistent cough, particularly when she starts talking. I cannot find any evidence of pneumonia in the lungs were clear to auscultation. She likely does have an aspiration syndrome and still has a possible bronchitis. I will give her a cough syrup containing codeine. Diagnosis Primary Impression: Bronchitis Additional Instructions: As we discussed, I still think that your symptoms are related to aspiration. you may have a bronchitis with the irritation that has occurred. I will give you a cough syrup containing codeine, there is no evidence that you have an active bacterial infection at this time. Med/Other Pt SpecificInfo: Prescription(s) given Scripts Tjfcivfhraubrsn-Yjeusnu-Nflwaqwayon Liq (Guaifenesin DAC Liq) 30-10-100 Mg/5 Ml Soln 10 ML PO Q4H Y for COUGH AND/OR COLD SYMPTOMS, #1 BOTTLE 0 Refills Prov: Steven Moore MD 08/06/17 Disposition: 01 DISCHARGE HOME Condition: Stable Steven Moore MD Aug 06, 2017 00:56
[2017-08-06] MEDS ORDERED: SODIUM CHLORIDE 0.9% FLUSH 10 ML FLUSH IVF PRN (01:00)
[2017-08-06] MEDS ORDERED: methylPREDNISolone SOD SUCC 125 MG/2 ML VIAL IV PUSH ONE (01:00)
[2017-08-06 01:05] VITALS: BP 163/83; PULSE 78; RESP 18; O2SAT 96
[2017-08-06] MEDS: RESP: ALBUTEROL 2.5 MG/IPRATROPIUM 0.5 MG NEB (SCH) INH ×3 (01:13→01:33)
[2017-08-06 01:30] LABS: AUTOMATED NEUTROPHIL # 4.1 TH/MM3 (1.8-7.7); BASOPHIL % 0.5 % (0.0-2.0); EOSINOPHIL # 0.2 TH/MM3 (0-0.4); EOSINOPHIL % 3.2 % (0.0-4.0); HEMATOCRIT 26.6 % (35.0-46.0); HEMOGLOBIN 9.4 GM/DL (11.6-15.3); LYMPH % 32.2 % (9.0-44.0); LYMPHOCYTE # 2.3 TH/MM3 (1.0-4.8); MEAN CELL VOLUME 93.5 FL (80.0-100.0); MEAN CORPUSCULAR HGB CONC 35.3 % (32.0-36.0); MONO % 6.7 % (0.0-8.0); MONOCYTE # 0.5 TH/MM3 (0-0.9); NEUT % 57.4 % (16.0-70.0); PLATELET COUNT 270 TH/MM3 (150-450); RED BLOOD COUNT 2.85 MIL/MM3 (4.00-5.30); RED CELL DISTRIBUTION WIDTH 13.3 % (11.6-17.2); WHITE BLOOD COUNT 7.1 TH/MM3 (4.0-11.0)
[2017-08-06 01:38] LABS: CHLORIDE 109 MEQ/L (98-107); SODIUM (NA) 144 MEQ/L (136-145)
[2017-08-06 01:41] LABS: CALCIUM 8.7 MG/DL (8.5-10.1)
[2017-08-06 01:42] LABS: ALBUMIN 3.1 GM/DL (3.4-5.0); BICARBONATE 27.1 MEQ/L (21.0-32.0); BLOOD UREA NITROGEN 9 MG/DL (7-18); GLUCOSE,RANDOM 108 MG/DL (74-106)
[2017-08-06 01:45] LABS: ALT (GPT) 31 U/L (10-53); AST (GOT) 21 U/L (15-37); CREATININE 0.73 MG/DL (0.50-1.00); GLOMERULAR FILTRATION RATE 81 ML/MIN (>89)
[2017-08-06 01:47] LABS: TOTAL BILIRUBIN ADULT 0.5 MG/DL (0.2-1.0)
[2017-08-06 01:48] LABS: ALKALINE PHOSPHATASE 74 U/L (45-117)
[2017-08-06 01:50] LABS: TROPONIN I LESS THAN 0.02 NG/ML (0.02-0.05)
--- NOTE | 2017-08-06 02:01 | RADRPT ---
EXAM DATE: 08/06/2017 1:58 AM EDT AGE/SEX: 62 years / Female INDICATIONS: Short of breath. CLINICAL DATA: This is the patient's initial encounter. Patient reports that signs and symptoms have been present for 1 day and indicates a pain score of 6/10. MEDICAL/SURGICAL HISTORY: None. None. COMPARISON: [facility], CHEST SINGLE AP, 08/01/2017. . FINDINGS: PA and lateral views of the chest demonstrate the lungs to be symmetrically aerated without evidence of mass, infiltrate or effusion. The cardiomediastinal contours are unremarkable. Osseous structures are intact. CONCLUSION: No acute cardiopulmonary disease Electronically signed by: Nathaniel Mantilla MD 08/06/2017 2:00 AM EDT
[2017-08-06 02:15] VITALS: BP 145/75; PULSE 84; RESP 18; O2SAT 96
[2017-08-06] MEDS ORDERED: GUAISOL PO (02:53)
[2017-08-06] MEDS ORDERED: guaiFENesin/CODEINE SYRUP 200 MG/20 MG/10 ML CUP PO ONE (03:00)
[2017-08-06 03:20] VITALS: BP 155/68
--- NOTE | 2017-08-06 13:58 | EKG ---
Date Performed: 08/06/2017 Time Performed: 02:12:47 PTAGE: 62 years EKG: Sinus rhythm NORMAL ECG WARNING: DATA QUALITY MAY AFFECT INTERPRETATION NO PREVIOUS TRACING DOCTOR: Keith Melo Interpretating Date/Time 08/06/2017 13:47:50
== END 2017-08-06 03:36 | disposition home or self-care (01) ==
LOC: PHED 23:01
DX: J40 Bronchitis, not specified as acute or chronic (principal); R06.02 Shortness of breath; M17.9 Osteoarthritis of knee, unspecified; E78.00 Pure hypercholesterolemia, unspecified; F17.200 Nicotine dependence, unspecified, uncomplicated; Z79.899 Other long term (current) drug therapy; Z87.19 Personal history of other diseases of the digestive system
CPT/HCPCS: 71046; 80053; 83880; 84484; 85025; 93005; 94640; 94664; 96374; 99285; J2930